=== PATIENT | male | born 1945 | race Caucasian/White ===

== ENCOUNTER 2016-07-13 06:59 | Inpatient (IN) | payer BC, OTHER ==
[2016-07-12] MEDS: SODIUM CHLORIDE 0.9% 1000ML 1,000 ML IV SCH (23:20)
[~2016-07-13] VITALS: Ht 172.7 cm; Wt 83.6 kg
[~2016-07-13 06:59] MED LIST: ASPEC325 PO; ENAL1TAB31 PO; HMLI SC; IBUP-1277 PO; INSDGI SC; LEVO1TAB PO; MISC1CAP65 PO; PRAV80TA2 PO
--- NOTE | 2016-07-13 07:07 | EMERGENCY ROOM VISIT NOTE ---
ED Visit Note First contact with patient: 07:06 I have seen and examined this patient with Michael Delarosa and generally agree with the treatment plan as discussed. Current/Historical Medications Scheduled Aspirin (Aspirin *), 325 MG PO QPM Enalapril Maleate (Vasotec), 1 TAB PO QPM Insulin Glargine (Lantus), 38 UNITS SC AMPM Insulin Lispro (Humalog), 22 UNITS SC TIDM Levothyroxine Sodium (Synthroid), 1 TAB PO QAM Misc Natural Products (Urinozinc), 1 CAP PO BID Pravastatin Sodium (Pravastatin Sodium), 1 TAB PO HS Scheduled PRN Ibuprofen (Advil), 400 MG PO BID PRN for Pain Allergies Coded Allergies: No Known Allergies (Verified , 07/13/16) Departure Information Referrals Lilian Ritchie M.D. (PCP) Patient Instructions My [facility]
--- NOTE | 2016-07-13 07:08 | EMERGENCY ROOM VISIT NOTE ---
History First contact with patient: 07:06 Chief Complaint: ILLNESS Stated Complaint: SINUS CONGESTION,VOMITING,BRONCHITIS,DEHYDRATION History of Present Illness The patient is a 70 year old male who presents to the Emergency Room via private vehicle accompanied by female with complaints of "sinus congestion, vomiting, bronchitis, dehydration". The patient states that he was placed on Augmentin this past Saturday for a sinus infection, and on Saturday developed vomiting. He also has nausea. He notes that recently his blood sugars have been very high, between 239 and 310. He notes his blood sugars are usually around 170. He also has an aphthous ulcer on his left lip, and is concerned about a dental infection. He notes that he is tired, and sick vomiting. He notes mild generalized abdominal pain since the vomiting began on Saturday, and has not had a bowel movement in 3 days. He feels that the Augmentin is providing some relief. There is associated chills. He denies any chest pain, shortness of breath, blood in the vomit, history of pancreatitis, urinary symptoms. He has miminal, generalized abdominal pain. Review of Systems A complete 10-point Review of Systems was discussed with the patient, with pertinent positives and negatives listed in the History of Present Illness. All remaining Review of Systems questions can be considered negative unless otherwise specified. Past Medical/Surgical History Medical Problems: (1) DKA (diabetic ketoacidosis) Social History Smoking Status: Former Smoker Housing Status: lives with family Current/Historical Medications Scheduled Amoxicillin & Pot Clavulanate (Augmentin 875-125 mg), 1 TAB PO BID Aspirin (Aspirin Ec), 81 MG PO DAILY Enalapril Maleate (Vasotec), 20 MG PO QPM Ergocalciferol (Vitamin D2), 1,000 UNITS PO DAILY Insulin Glargine (Lantus), 42 UNITS SC AMPM Insulin Lispro (Human) (Humalog), 25 UNITS SC TIDM Levothyroxine Sodium (Levothyroxine Sodium), 137 MCG PO DAILY Multivitamin (Multivitamin), 1 TAB PO DAILY Pravastatin Sodium (Pravastatin Sodium), 80 MG PO HS Scheduled PRN Ibuprofen (Advil), 400 MG PO BID PRN for Pain Allergies Coded Allergies: No Known Allergies (Verified , 07/13/16) Physical Exam Vital Signs Date Time Temp Pulse Resp B/P Pulse Ox O2 Delivery O2 Flow Rate FiO2 07/13/16 10:40 72 18 161/95 95 Room Air 07/13/16 10:18 72 07/13/16 08:27 83 18 123/75 96 Room Air 07/13/16 07:19 93 07/13/16 07:03 36.4 91 17 140/99 98 Room Air Physical Exam VITAL SIGNS - Vital signs and nursing notes were reviewed. Patient is afebrile , non-tachycardic, his respiratory well, has a stable blood pressure and is saturating well on room air 98%. GENERAL -70-year-old male appearing his stated age who is in no acute distress. Communicates well with provider and answers questions appropriately. SKIN - Without rashes. No petechial rashes. HEAD - NC/AT. EYES - PERRL with EOMI bilaterally. Sclera anicteric. Palpebral conjunctiva pink and moist with no injection noted. EARS - No deformities of external structures noted on gross examination bilaterally. No pain elicited with palpation of the tragus bilaterally. External auditory canals without discharge or otorrhea. Tympanic membranes pearly vicente without retraction or bulging. No fluid or purulent material visualized behind the TM. Handle of malleus, umbo, cone of light, pars tensa/ flaccid all easily visualized. NOSE - Midline and without cyanosis. No epistaxis or purulent drainage noted. Septum midline without deviation or septal hematoma noted. MOUTH/OROPHARYNX - Without perioral cyanosis. Buccal mucosa pink and moist and without leukoplakia. Tongue midline with equal elevation of palate bilaterally. No tonsillar hypertrophy, erythema, or exudates noted. Fair dentition noted. No signs of Hieu angina. NECK - Neck with FROM. Supple to palpation. No lymphadenopathy noted. No nuchal rigidity. LUNGS - Chest wall symmetric without accessory muscle use, intercostals retractions, or central cyanosis. Normal vesicular breath sounds CTA B/L. No wheezes, rales, or rhonchi appreciated. CARDIAC - RRR with S1/S2. No murmur, rubs, or gallops appreciated. ABDOMEN - Abdominal contour without pulsations or visible masses. BS normoactive all four quadrants. There is generalized, moderate abdominal tenderness to palpation. No palpable masses, hepatosplenomegaly, or ascites noted. EXTREMITIES - No clubbing or peripheral cyanosis. No pretibial edema present. +5 /5 strength noted in UE/LE bilaterally. NEUROLOGIC - Cranial nerves II through XII grossly intact. Sensory intact to light touch throughout. PSYCH - A&Ox3 and cooperates fully with examiner. Pt is very pleasant and interacts well with examiner. Medical Decision & Procedures ER Provider Diagnostic Interpretation: CHEST ONE VIEW PORTABLE HISTORY: Vomiting COMPARISON: None. FINDINGS: Poststernotomy changes. No focal lung consolidations. No evidence for pulmonary edema. No pleural effusions. No pneumothorax. IMPRESSION: No acute process. Electronically signed by: Mainor Cano M.D. 07/13/2016 8:03 AM Dictated Date/Time: 07/13/2016 7:57 AM ABDOMEN AND PELVIS CT WITH IV CONTRAST CT DOSE: 731.73 mGycm HISTORY: Emesis TECHNIQUE: Multiaxial CT images of the abdomen and pelvis were performed following the use of intravenous contrast. COMPARISON STUDY: None. FINDINGS: The lung bases are clear. No pneumoperitoneum. No pneumatosis. 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 Poststernotomy changes. Suspect mild thickening of the distal esophagus, stomach, and duodenum. There is also suggestion of mild thickening involving the cecum, ascending colon, and hepatic flexure of the colon. The liver, gallbladder, spleen, adrenal glands, and kidneys are unremarkable. No retroperitoneal lymphadenopathy. Subcutaneous contusions within the anterior abdominal wall bilaterally. This favors prior medication injection. Punctate calcification within the pancreatic head. There is also a 2.0 x 1.0 cm calcification at the body of the pancreas. Proximal to this there is dilatation the main pancreatic duct and multiple additional punctate calcifications within the pancreatic tail. The main pancreatic duct measures 11 mm in diameter. There is diffuse atrophy of the pancreatic tail. The main portal vein is patent. The bladder is unremarkable. There is mild enlargement of the prostate gland. Tiny fat-containing right inguinal hernia. No evidence for bowel obstruction. Normal appendix. Left circumaortic renal vein. IMPRESSION: 1. There is suggestion of mild thickening of the distal esophagus, stomach, duodenum. There may also be mild thickening of the proximal colon. However, these findings could be due to underdistention given the lack of oral contrast. Endoscopy can be further evaluation given the patient's history of emesis and to exclude an inflammatory process. 2. A 2.0 x 1.0 cm calcification at the body of the pancreas. This results in obstruction with marked dilatation of the pancreatic duct at the tail with associated atrophy of the pancreatic tail. There are additional scattered punctate calcifications within the pancreas consistent with chronic pancreatitis. This calcification could be within the pancreatic parenchyma or within the duct. 3. Subcutaneous contusions within the anterior abdominal wall bilaterally. This favors prior medication injection. 4. Additional findings as described above. Electronically signed by: Mainor Cano M.D. 07/13/2016 9:02 AM Dictated Date/Time: 07/13/2016 8:48 AM Laboratory Results 07/13/16 07:30 Red Blood Count 5.67, Mean Corpuscular Volume 82.2, Mean Corpuscular Hemoglobin 29.5, Mean Corpuscular Hemoglobin Concent 35.8, Mean Platelet Volume 11.2, Neutrophils (%) (Auto) 76.9, Lymphocytes (%) (Auto) 12.0, Monocytes (%) (Auto) 8.4, Eosinophils (%) (Auto) 2.2, Basophils (%) (Auto) 0.1, Neutrophils # (Auto) 10.69, Lymphocytes # (Auto) 1.66, Monocytes # (Auto) 1.16, Eosinophils # (Auto) 0.31, Basophils # (Auto) 0.02 Test 07/13/16 07:30 07/13/16 09:10 07/13/16 09:11 07/13/16 09:30 White Blood Count 13.89 K/uL (4.8-10.8) Red Blood Count 5.67 M/uL (4.7-6.1) Hemoglobin 16.7 g/dL (14.0-18.0) Hematocrit 46.6 % (42-52) Mean Corpuscular Volume 82.2 fL (80-100) Mean Corpuscular Hemoglobin 29.5 pg (25-34) Mean Corpuscular Hemoglobin Concent 35.8 g/dl (32-36) Platelet Count 185 K/uL (130-400) Mean Platelet Volume 11.2 fL (7.4-10.4) Neutrophils (%) (Auto) 76.9 % Lymphocytes (%) (Auto) 12.0 % Monocytes (%) (Auto) 8.4 % Eosinophils (%) (Auto) 2.2 % Basophils (%) (Auto) 0.1 % Neutrophils # (Auto) 10.69 K/uL (1.4-6.5) Lymphocytes # (Auto) 1.66 K/uL (1.2-3.4) Monocytes # (Auto) 1.16 K/uL (0.11-0.59) Eosinophils # (Auto) 0.31 K/uL (0-0.5) Basophils # (Auto) 0.02 K/uL (0-0.2) RDW Standard Deviation 39.0 fL (36.4-46.3) RDW Coefficient of Variation 13.0 % (11.5-14.5) Immature Granulocyte % (Auto) 0.4 % Immature Granulocyte # (Auto) 0.05 K/uL (0.00-0.02) Estimated Average Glucose 246 mg/dl Hemoglobin A1c 10.2 % (4.5-5.6) Total Bilirubin 0.8 mg/dl (0.2-1) Aspartate Amino Transf (AST/SGOT) U/L (15-37) Alanine Aminotransferase (ALT/SGPT) 35 U/L (12-78) Alkaline Phosphatase 72 U/L (45-117) Troponin I < 0.015 ng/ml (0-0.045) Total Protein 7.1 gm/dl (6.4-8.2) Albumin 3.5 gm/dl (3.4-5.0) Globulin 3.6 gm/dl (2.5-4.0) Albumin/Globulin Ratio 1.0 (0.9-2) Amylase Level 35 U/L (25-115) Lipase 498 U/L (73-393) Beta-Hydroxybutyric Acid 15.86 mg/dL (0.2-2.81) Urine Color YELLOW Urine Appearance CLEAR (CLEAR) Urine pH 5.0 (4.5-7.5) Urine Specific [place] > 1.045 (1.000-1.030) Urine Protein NEG (NEG) Urine Glucose (UA) 3+ (NEG) Urine Ketones 3+ (NEG) Urine Occult Blood NEG (NEG) Urine Nitrite NEG (NEG) Urine Bilirubin NEG (NEG) Urine Urobilinogen NEG (NEG) Urine Leukocyte Esterase NEG (NEG) Bedside Troponin I 0.000 ng/ml (0-0.045) Magnesium Level 2.0 mg/dl (1.8-2.4) Medications Administered Medications (Trade) Dose Ordered Sig/[place] Route Start Time Stop Time Status Last Admin Dose Admin Sodium Chloride (Nss 1000ml) 1,000 ml @ 999 mls/hr Q1H1M IV 07/13/16 07:30 07/13/16 13:20 DC 07/13/16 07:36 999 MLS/HR Ondansetron HCl 4 mg 4 mg NOW STAT IV 07/13/16 07:18 07/13/16 07:21 DC 07/13/16 07:36 4 MG Sodium Chloride (Nss 1000ml) 1,000 ml @ 200 mls/hr Q5H STAT IV 07/13/16 09:12 07/13/16 13:20 DC 07/13/16 09:21 200 MLS/HR Ondansetron HCl 4 mg 4 mg NOW STAT IV 07/13/16 10:42 07/13/16 10:43 DC 07/13/16 10:56 4 MG Sodium Chloride (Nss 1000ml) 1,000 ml @ 100 mls/hr Q10H IV 07/13/16 11:39 08/12/16 11:38 07/13/16 13:47 100 MLS/HR Medical Decision Patient was seen and evaluated as above. After obtaining a thorough history and physical examination the above workup was initiated. I was concerned for DKA, pancreatitis, [place], among others. Chest x-ray reveals no acute process is noted above. EKG reveals sinus rhythm, rate of 77 bpm with without acute ectopy or evidence of ischemic change at this time, however when compared to previous EKG, a right bundle branch block is now present. And PVCs are now present. Patient's lab work reveals an elevated leukocytosis of 13.9, normal coagulation studies, a low sodium, elevated anion gap of 12, elevated BUN 27, random glucose of 313, calcium at 8.4, lipase at 4.98 and beta hydroxybutyric acid at 15.86. Urine reveals elevated specific gravity, and 3+ ketones. There was concern for DKA. No fruity breath smell. Chest x-ray unremarkable. Abdomen pelvis CT as described above. There is concern for chronic pancreatitis , among other findings. Case was discussed with my attending and the decision was made to the patient should be admitted for further evaluation and management. While here in the emergency department he was hydrated with 1 L of normal saline bolus, and then maintained 200 mL's per hour. He was given Zofran 2 for his nausea. He did not want any for pain. I do not suspect any acute cardiac cause of this pain. Troponin was negative. Patient was happy with today's plan of care, and will be admitted for further evaluation and management. His case was discussed with the hospitalist. Please refer to further documentation regarding the patient's stay. In the evaluation and treatment of this patient following differential diagnoses were entertained: DKA, pancreatitis, [place], among others. Impression Primary Impression: DKA (diabetic ketoacidosis) Additional Impression: Pancreatitis Departure Information Dispostion Admitted as an inpatient Condition FAIR Referrals Lilian Ritchie M.D. (PCP) Patient Instructions My [facility] Problem Qualifiers Primary Impression: DKA (diabetic ketoacidosis)
[2016-07-13] MEDS ORDERED: ONDANSETRON INJ 2 MG/ML 2 ML VIAL IV STA ×2 (07:18→10:42)
[2016-07-13] MEDS ORDERED: SODIUM CHLORIDE 0.9% 1000ML 1,000 ML IV SCH (07:30)
[2016-07-13 07:45] LABS: BASO % 0.1 %; BASO ABS # 0.02 K/uL (0-0.2); COMPLETE YES; EOS % 2.2 %; HEMATOCRIT 46.6 % (42-52); IG% 0.4 %; LYMPH ABS # 1.66 K/uL (1.2-3.4); MEAN CELL VOLUME 82.2 fL (80-100); MEAN CORPUSCULAR HEMOGLOBIN 29.5 pg (25-34); MEAN CORPUSCULAR HGB CONC 35.8 g/dl (32-36); MEAN PLATELET VOLUME 11.2 fL (7.4-10.4); MONO % 8.4 %; NEUT % 76.9 %; PLATELET COUNT 185 K/uL (130-400); RED BLOOD COUNT 5.67 M/uL (4.7-6.1); WHITE BLOOD COUNT 13.89 K/uL (4.8-10.8)
[2016-07-13] MEDS ORDERED: OPTIRAY 320 IV PRN (07:45)
[2016-07-13] MEDS ORDERED: ASPI81TA28 PO (07:58)
[2016-07-13] MEDS ORDERED: ERGO1TAB12 PO (07:58)
[2016-07-13] MEDS ORDERED: AMOX875T PO (07:58)
[2016-07-13] MEDS ORDERED: INSDGI SC (07:58)
[2016-07-13] MEDS ORDERED: SYN137 PO (07:58)
[2016-07-13] MEDS ORDERED: MULT-506 PO (07:58)
[2016-07-13] MEDS ORDERED: INSU100I SC (07:58)
--- NOTE | 2016-07-13 08:04 | DIAGNOSTIC IMAGING REPORT ---
CHEST ONE VIEW PORTABLE HISTORY: Vomiting COMPARISON: None. FINDINGS: Poststernotomy changes. No focal lung consolidations. No evidence for pulmonary edema. No pleural effusions. No pneumothorax. IMPRESSION: No acute process. Electronically signed by: Mainor Cano M.D. 07/13/2016 8:03 AM Dictated Date/Time: 07/13/2016 7:57 AM
[2016-07-13 08:10] LABS: ALKALINE PHOSPHATASE 72 U/L (45-117); ALT/SGPT 35 U/L (12-78); AMYLASE 35 U/L (25-115); BETA-HYDROXYBUTYRATE 15.86 mg/dL (0.2-2.81); BLOOD UREA NITROGEN 27 mg/dl (7-18); BUN/CREATININE RATIO 26.8 (10-20); CALCIUM 8.4 mg/dl (8.5-10.1); CARBON DIOXIDE 21 mmol/L (21-32); CHLORIDE 100 mmol/L (98-107); GLUCOSE 313 mg/dl (70-99); SODIUM 133 mmol/L (136-145)
--- NOTE | 2016-07-13 09:04 | DIAGNOSTIC IMAGING REPORT ---
ABDOMEN AND PELVIS CT WITH IV CONTRAST CT DOSE: 731.73 mGycm HISTORY: Emesis TECHNIQUE: Multiaxial CT images of the abdomen and pelvis were performed following the use of intravenous contrast. COMPARISON STUDY: None. FINDINGS: The lung bases are clear. No pneumoperitoneum. No pneumatosis. 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 Poststernotomy changes. Suspect mild thickening of the distal esophagus, stomach, and duodenum. There is also suggestion of mild thickening involving the cecum, ascending colon, and hepatic flexure of the colon. The liver, gallbladder, spleen, adrenal glands, and kidneys are unremarkable. No retroperitoneal lymphadenopathy. Subcutaneous contusions within the anterior abdominal wall bilaterally. This favors prior medication injection. Punctate calcification within the pancreatic head. There is also a 2.0 x 1.0 cm calcification at the body of the pancreas. Proximal to this there is dilatation the main pancreatic duct and multiple additional punctate calcifications within the pancreatic tail. The main pancreatic duct measures 11 mm in diameter. There is diffuse atrophy of the pancreatic tail. The main portal vein is patent. The bladder is unremarkable. There is mild enlargement of the prostate gland. Tiny fat-containing right inguinal hernia. No evidence for bowel obstruction. Normal appendix. Left circumaortic renal vein. IMPRESSION: 1. There is suggestion of mild thickening of the distal esophagus, stomach, duodenum. There may also be mild thickening of the proximal colon. However, these findings could be due to underdistention given the lack of oral contrast. Endoscopy can be further evaluation given the patient's history of emesis and to exclude an inflammatory process. 2. A 2.0 x 1.0 cm calcification at the body of the pancreas. This results in obstruction with marked dilatation of the pancreatic duct at the tail with associated atrophy of the pancreatic tail. There are additional scattered punctate calcifications within the pancreas consistent with chronic pancreatitis. This calcification could be within the pancreatic parenchyma or within the duct. 3. Subcutaneous contusions within the anterior abdominal wall bilaterally. This favors prior medication injection. 4. Additional findings as described above. Electronically signed by: Mainor Cano M.D. 07/13/2016 9:02 AM Dictated Date/Time: 07/13/2016 8:48 AM
[2016-07-13] MEDS ORDERED: SODIUM CHLORIDE 0.9% 1000ML 1,000 ML IV STA (09:12)
[2016-07-13 09:25] LABS: URINE APPEARANCE CLEAR (CLEAR); URINE BILIRUBIN NEG (NEG); URINE COLOR YELLOW; URINE NITRITE NEG (NEG); URINE SPECIFIC GRAVITY > 1.045 (1.000-1.030); UROBILINOGEN NEG (NEG); ZZUR CULT IF INDIC CLEAN CATCH NO
[2016-07-13 09:31] LABS: MANUAL MICROSCOPIC REQUIRED? NO; REVIEW REQ? NO
[2016-07-13 09:53] LABS: POTASSIUM 4.3 mmol/L (3.5-5.1)
[2016-07-13] MEDS ORDERED: DEXTROSE 50% 50 ML SYR IV PRN (11:45)
[2016-07-13] MEDS ORDERED: MAGNESIUM HYDROXIDE SUSP 30 ML UDC PO PRN (11:45)
[2016-07-13] MEDS ORDERED: POLYETHYLENE (MIRALAX) 17 GM PACK PO PRN (11:45)
[2016-07-13] MEDS ORDERED: GLUCOSE 40% GEL 15 GM TUBE PO PRN (11:45)
[2016-07-13] MEDS ORDERED: GLUCOSE 10 TABS/TUBE PO PRN (11:45)
[2016-07-13] MEDS ORDERED: ALUMINUM/MAGNESIUM/SIMETH (MAALOX MAX) 30 ML UDC PO PRN (11:45)
[2016-07-13] MEDS ORDERED: HydrALAZINE HCL 20 MG/ML VIAL IV. PRN (11:45)
[2016-07-13] MEDS ORDERED: GLUCAGON FOR INJ 1 MG VIAL SQ PRN (11:45)
[2016-07-13] MEDS ORDERED: ONDANSETRON INJ 2 MG/ML 2 ML VIAL IV PRN (11:45)
[2016-07-13] MEDS ORDERED: PHARMACY GLYCEMIC MGMT CONSULT PRN (12:01)
[2016-07-13 12:34] LABS: ESTIMATED AVERAGE GLUCOSE 246 mg/dl; HA1C FLAG Normal (Normal)
[2016-07-13 12:48] VITALS: O2SAT 96
--- NOTE | 2016-07-13 12:54 | History and Physical ---
History & Physical Date & Time of Service: Jul 13, 2016 at 12:09 Chief Complaint: Sinus Congestion,Vomiting,Bronchitis,Dehydration Primary Care Physician: Lilian Ritchie M.D. History of Present Illness Source: patient, spouse ( at bedside), clinic records, hospital records This is a 70 y/o male with a history of DM II, recurrent sinusitis, HTN, HLD, hypothyroidism who presented to the ED on 07/13 with nausea, vomiting, and elevated blood sugars. The patient states that he developed an acute episode of his recurrent sinusitis which started about 2 weeks ago, complaining of sinus congestion, facial pressure, lightheadedness and headaches. His blood sugars also became more elevated than normal around the same time. He states his sugars typically run around 170, but in the last 2 weeks have been in the mid 200s to low 300s. He went to his PCP who prescribed him Augmentin, which he started on 07/09. The Augmentin seemed to temporarily help his symptoms for a few hours following each dose. 2 days after starting the antibiotic, the patient developed nausea and vomiting. The patient states he vomited 7 times that day alone and was not able to keep food or medications down. He reports feeling chills and sweats following vomiting and denies any blood in the vomitus. He later developed an aching abdominal pain after several episodes of vomiting. The patient also complains of weakness, fatigue, generalized myalgias , wheezing and dyspnea on exertion. He also reports a mild cough with some thick clear/white mucus. The patient denies fevers, chest pain, palpitations, claudication, shortness of breath at rest, dysuria, hematuria, urinary retention , paralysis, motor weakness, numbness and tingling. Past Medical/Surgical History Diabetes mellitus type 2 Recurrent sinusitis HTN HLD Hypothyroidism Family History Bladder cancer Diabetes mellitus Hyperlipidemia Hypertension Myocardial infarction Social History Smoking Status: Former Smoker Smokeless Tobacco Use: No Alcohol Use: none Drug Use: none Marital Status: Housing status: lives with significant other Occupational Status: retired Multi-Drug Resistant Organisms History of MDRO: No Allergies Coded Allergies: No Known Allergies (Verified , 07/13/16) Home Medications Scheduled Amoxicillin & Pot Clavulanate (Augmentin 875-125 mg), 1 TAB PO BID Aspirin (Aspirin Ec), 81 MG PO DAILY Enalapril Maleate (Vasotec), 20 MG PO QPM Ergocalciferol (Vitamin D2), 1,000 UNITS PO DAILY Insulin Glargine (Lantus), 42 UNITS SC AMPM Insulin Lispro (Human) (Humalog), 25 UNITS SC TIDM Levothyroxine Sodium (Levothyroxine Sodium), 137 MCG PO DAILY Multivitamin (Multivitamin), 1 TAB PO DAILY Pravastatin Sodium (Pravastatin Sodium), 80 MG PO HS Scheduled PRN Ibuprofen (Advil), 400 MG PO BID PRN for Pain Review of Systems Constitutional: + chills (after vomiting), + fatigue, + problem reported ( lightheaded), + sweats (after vomiting), + weakness, No fever Eyes: + worsening of vision (blurry vision), No diplopia, No eye pain ENT: + nasal symptoms (congestion), + problem reported (sinus congestion, sinus pressure, sinus headaches), No hearing loss, No sore throat, No trouble swallowing Respiratory: + cough (mild), + dyspnea on exertion, + sputum (thick clear/ white mucus), + wheezing, No dyspnea at rest Cardiovascular: No chest pain, No claudication, No palpitations Abdomen: + constipation, + nausea, + pain (diffuse, sore), + vomiting Musculoskeletal: + muscle pain (generalized myalgias), No calf pain, No swelling Genitourinary - Male: + problem reported (dark, concentrated urine, decreased frequency), + urinary retention, No dysuria, No hematuria Neurologic: No numbness/tingling, No paralysis, No weakness Integumentary: No color change, No itch, No rash Physical Exam Vital Signs Date Time Temp Pulse Resp B/P Pulse Ox O2 Delivery O2 Flow Rate FiO2 07/13/16 10:40 72 18 161/95 95 Room Air 07/13/16 10:18 72 07/13/16 08:27 83 18 123/75 96 Room Air 07/13/16 07:19 93 07/13/16 07:03 36.4 91 17 140/99 98 Room Air General Appearance: WD/WN, no apparent distress Head: normocephalic, atraumatic Eyes: normal inspection, PERRL, EOMI ENT: normal ENT inspection, hearing grossly normal, pharynx normal Neck: supple, no JVD, trachea midline Respiratory/Chest: lungs clear, normal breath sounds, no respiratory distress, + decreased breath sounds Cardiovascular: regular rate, rhythm, no gallop, no murmur Abdomen/GI: normal bowel sounds, soft, + tenderness (mild diffuse tenderness) Extremities/Musculoskelatal: normal inspection, no calf tenderness, no pedal edema Neurologic/Psych: alert, normal mood/affect, oriented x 3 Skin: normal color, warm/dry, no rash Diagnostics Laboratory Results Results Past 24 Hours Test 07/13/16 07:30 07/13/16 09:10 07/13/16 09:11 07/13/16 09:30 Range/Units White Blood Count 13.89 4.8-10.8 K/uL Red Blood Count 5.67 4.7-6.1 M/uL Hemoglobin 16.7 14.0-18.0 g/dL Hematocrit 46.6 42-52 % Mean Corpuscular Volume 82.2 80-100 fL Mean Corpuscular Hemoglobin 29.5 25-34 pg Mean Corpuscular Hemoglobin Concent 35.8 32-36 g/dl Platelet Count 185 130-400 K/uL Mean Platelet Volume 11.2 7.4-10.4 fL Neutrophils (%) (Auto) 76.9 % Lymphocytes (%) (Auto) 12.0 % Monocytes (%) (Auto) 8.4 % Eosinophils (%) (Auto) 2.2 % Basophils (%) (Auto) 0.1 % Neutrophils # (Auto) 10.69 1.4-6.5 K/uL Lymphocytes # (Auto) 1.66 1.2-3.4 K/uL Monocytes # (Auto) 1.16 0.11-0.59 K/uL Eosinophils # (Auto) 0.31 0-0.5 K/uL Basophils # (Auto) 0.02 0-0.2 K/uL RDW Standard Deviation 39.0 36.4-46.3 fL RDW Coefficient of Variation 13.0 11.5-14.5 % Immature Granulocyte % (Auto) 0.4 % Immature Granulocyte # (Auto) 0.05 0.00-0.02 K/uL Sodium Level 133 136-145 mmol/L Potassium Level 4.3 3.5-5.1 mmol/L Chloride Level 100 98-107 mmol/L Carbon Dioxide Level 21 21-32 mmol/L Anion Gap 12.0 3-11 mmol/L Blood Urea Nitrogen 27 7-18 mg/dl Creatinine 1.00 0.60-1.40 mg/dl Est Creatinine Clear Calc Drug Dose 73.3 ml/min Estimated GFR () 88.6 Estimated GFR (Non- 76.5 BUN/Creatinine Ratio 26.8 10-20 Random Glucose 313 70-99 mg/dl Calcium Level 8.4 8.5-10.1 mg/dl Magnesium Level 2.0 1.8-2.4 mg/dl Total Bilirubin 0.8 0.2-1 mg/dl Aspartate Amino Transf (AST/SGOT) 15-37 U/L Alanine Aminotransferase (ALT/SGPT) 35 12-78 U/L Alkaline Phosphatase 72 45-117 U/L Troponin I < 0.015 0-0.045 ng/ml Total Protein 7.1 6.4-8.2 gm/dl Albumin 3.5 3.4-5.0 gm/dl Globulin 3.6 2.5-4.0 gm/dl Albumin/Globulin Ratio 1.0 0.9-2 Amylase Level 35 25-115 U/L Lipase 498 73-393 U/L Beta-Hydroxybutyric Acid 15.86 0.2-2.81 mg/dL Urine Color YELLOW Urine Appearance CLEAR CLEAR Urine pH 5.0 4.5-7.5 Urine Specific [place] > 1.045 1.000-1.030 Urine Protein NEG NEG Urine Glucose (UA) 3+ NEG Urine Ketones 3+ NEG Urine Occult Blood NEG NEG Urine Nitrite NEG NEG Urine Bilirubin NEG NEG Urine Urobilinogen NEG NEG Urine Leukocyte Esterase NEG NEG Bedside Troponin I 0.000 0-0.045 ng/ml Microbiology Results 07/13/16 Blood Culture, Emerson Batch Pending 07/13/16 Blood Culture, Emerson Batch Pending Diagnostic Radiology Reviewed the following studies and agree with interpretation as follows: Patient Name: MICHAEL VEGA Unit Number: [id number] Dictated: 07/13/16756 Transcribed: 07/13/16756 TIER[facility] Printed Date/Time: [~ rep prt dt]/[~ rep prt tm] [~ rep ct labl] - [~ rep ct ivnm] [facility] [place] [address] Dictated: 02/24/17 0757 Transcribed: 07/13/16756 PAJ Printed Date/Time: [~ rep prt dt]/[~ rep prt tm] [~ rep ct labl] - [~ rep ct ivnm] Patient: MICHAEL VEGA Address1: [address] [place] [address] Rec: [id number] Address2: Acct ID: [id number] [facility] Zip: [place] [address] Date: 1945 Sex: M Room/Bed: Ref Phy: Lilian Ritchie M.D. SC: JEROMY Att Phy: Report #: [id number] Tiny Phy: Lilian Ritchie M.D. Test: CXR1P Admit Phy: Intermodal Dispatcher: [facility] Interpreting Phy: Mainor Cano MD Diagnosis: SINUS CONGESTION,VOMITING, BRONCHITIS,DEHYDRATION Ordering Phy: Michael Garcia PA-C Service Date: 07/13/16 Admit Date: 07/13/16 MNE: PWRSCRIBE CONF: DICTATED BY: Mainor Cano M.D.]] CC: Michael Garcia PA-C Finnerty, Kevin M., MD Singh, Madhavi, M.D. Endcc: [~ rep ct add3]] CHEST ONE VIEW PORTABLE HISTORY: Vomiting COMPARISON: None. FINDINGS: Poststernotomy changes. No focal lung consolidations. No evidence for pulmonary edema. No pleural effusions. No pneumothorax. IMPRESSION: No acute process. Electronically signed by: Mainor Cano M.D. 07/13/2016 8:03 AM Dictated Date/Time: 07/13/2016 7:57 AM The status of this report is Signed. Draft = Not yet reviewed or approved by Radiologist. Signed = Reviewed and approved by Radiologist. <AttendingPhy></AttendingPhy> <FamilyPhy>Lilian Ritchie M.D.</FamilyPhy> < PrimaryPhy>Lilian Ritchie M.D.</PrimaryPhy> <UnitNumber>[id number]</UnitNumber > <VisitNumber>[id number]</VisitNumber> <PatientName>MICHAEL VEGA</ PatientName> <DateOfBirth>1945</DateOfBirth> <Location>JEROMY</Location> < ServiceDate>07/13/16</ServiceDate> <MNE>ESINDI</MNE> <OrderingPhy>Michael Garcia PA-C</OrderingPhy> <OrderingPhyMNE>f rep ord dr matthews</OrderingPhyMNE> < DictatingPhyMNE>f rep dict dr matthews</DictatingPhyMNE> <CCListMNE>f rep ct mne</ CCListMNE> <AdmittingPhyMNE>f pt admit dr matthews</AdmittingPhyMNE> <AttendingPhyMNE >f pt attend dr matthews</AttendingPhyMNE> <ConsultingPhyMNE>f pt consult dr matthews</ConsultingPhyMNE> <FamilyPhyMNE>f pt fam dr matthews</FamilyPhyMNE> <OtherPhyMNE>f pt other dr matthews</OtherPhyMNE> < PrimaryPhyMNE>f pt prim care dr matthews</PrimaryPhyMNE> <ReferringPhyMNE>f pt referring dr matthews</ReferringPhyMNE> Patient Name: MICHAEL VEGA Unit Number: [id number] Dictated: 07/13/16847 Transcribed: 07/13/16847 [facility] Printed Date/Time: [~ rep prt dt]/[~ rep prt tm] [~ rep ct labl] - [~ rep ct ivnm] [facility] [place] [address] Dictated: 07/13/16847 Transcribed: 07/13/16847 [facility] Printed Date/Time: [~ rep prt dt]/[~ rep prt tm] [~ rep ct labl] - [~ rep ct ivnm] Patient: MICHAEL VEGA Address1: [address] [place] [address] Rec: [id number] Address2: Acct ID: [id number] [facility] Zip: [place] [address] Date: 1945 Sex: M Room/Bed: Ref Phy: Lilian Ritchie M.D. SC: JEROMY Att Phy: Report #: [id number] Tiny Phy: Lilian Ritchie M.D. Test: APIV Admit Phy: Intermodal Dispatcher: [facility] Interpreting Phy: Mainor Cano MD Diagnosis: SINUS CONGESTION,VOMITING, BRONCHITIS,DEHYDRATION Ordering Phy: Michael Garcia PA-C Service Date: 07/13/16 Admit Date: 07/13/16 MNE: PWRSCRIBE CONF: DICTATED BY: Mainor Cano M.D.]] CC: Michael Garcia PA-C Finnerty, Kevin M., MD Singh, Madhavi, M.D. Endcc: [~ rep ct add3]] ABDOMEN AND PELVIS CT WITH IV CONTRAST CT DOSE: 731.73 mGycm HISTORY: Emesis TECHNIQUE: Multiaxial CT images of the abdomen and pelvis were performed following the use of intravenous contrast. COMPARISON STUDY: None. FINDINGS: The lung bases are clear. No pneumoperitoneum. No pneumatosis. 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 Poststernotomy changes. Suspect mild thickening of the distal esophagus, stomach, and duodenum. There is also suggestion of mild thickening involving the cecum, ascending colon, and hepatic flexure of the colon. The liver, gallbladder, spleen, adrenal glands, and kidneys are unremarkable. No retroperitoneal lymphadenopathy. Subcutaneous contusions within the anterior abdominal wall bilaterally. This favors prior medication injection. Punctate calcification within the pancreatic head. There is also a 2.0 x 1.0 cm calcification at the body of the pancreas. Proximal to this there is dilatation the main pancreatic duct and multiple additional punctate calcifications within the pancreatic tail. The main pancreatic duct measures 11 mm in diameter. There is diffuse atrophy of the pancreatic tail. The main portal vein is patent. The bladder is unremarkable. There is mild enlargement of the prostate gland. Tiny fat-containing right inguinal hernia. No evidence for bowel obstruction. Normal appendix. Left circumaortic renal vein. IMPRESSION: 1. There is suggestion of mild thickening of the distal esophagus, stomach, duodenum. There may also be mild thickening of the proximal colon. However, these findings could be due to underdistention given the lack of oral contrast. Endoscopy can be further evaluation given the patient's history of emesis and to exclude an inflammatory process. 2. A 2.0 x 1.0 cm calcification at the body of the pancreas. This results in obstruction with marked dilatation of the pancreatic duct at the tail with associated atrophy of the pancreatic tail. There are additional scattered punctate calcifications within the pancreas consistent with chronic pancreatitis. This calcification could be within the pancreatic parenchyma or within the duct. 3. Subcutaneous contusions within the anterior abdominal wall bilaterally. This favors prior medication injection. 4. Additional findings as described above. Electronically signed by: Mainor Cano M.D. 07/13/2016 9:02 AM Dictated Date/Time: 07/13/2016 8:48 AM The status of this report is Signed. Draft = Not yet reviewed or approved by Radiologist. Signed = Reviewed and approved by Radiologist. <AttendingPhy></AttendingPhy> <FamilyPhy>Lilian Ritchie M.D.</FamilyPhy> < PrimaryPhy>Lilian Ritchie M.D.</PrimaryPhy> <UnitNumber>[id number]</UnitNumber > <VisitNumber>[id number]</VisitNumber> <PatientName>MICHAEL VEGA</ PatientName> <DateOfBirth>1945</DateOfBirth> <Location>C.EDB</Location> < ServiceDate>07/13/16</ServiceDate> <MNE>ESINDI</MNE> <OrderingPhy>Michael Garcia PA-C</OrderingPhy> <OrderingPhyMNE>f rep ord dr matthews</OrderingPhyMNE> < DictatingPhyMNE>f rep dict dr matthews</DictatingPhyMNE> <CCListMNE>f rep ct cassie</ CCListMNE> <AdmittingPhyMNE>f pt admit dr matthews</AdmittingPhyMNE> <AttendingPhyMNE >f pt attend dr matthews</AttendingPhyMNE> <ConsultingPhyMNE>f pt consult dr matthews</ConsultingPhyMNE> <FamilyPhyMNE>f pt fam dr matthews</FamilyPhyMNE> <OtherPhyMNE>f pt other dr matthews</OtherPhyMNE> < PrimaryPhyMNE>f pt prim care dr matthews</PrimaryPhyMNE> <ReferringPhyMNE>f pt referring dr matthews</ReferringPhyMNE> EKG Reviewed EKG and agree with interpretation as follows: 77 bpm, sinus rhythm with PVCs, RBBB, T wave inversions leads V1 and V2 Impression Assessment and Plan 70 y/o male with a history of DM II, recurrent sinusitis, HTN, HLD, hypothyroidism who presented to the ED on 07/13 with nausea, vomiting, and elevated blood sugars. Acute episode of sinusitis started 2 weeks ago and blood sugars went up to mid 200s to low 300s around the same time. Pt began treatment with Augmentin on 07/09. 2 days later developed N/V, generalized myalgias, weakness and fatigue. CXR no acute disease. Abd/pelvis CT shows chronic pancreatitis and pancreatic calcification causing obstruction and dilation of pancreatic duct. WBC elevated at 13.89. Lipase elevated at 498. Beta hydroxybutyric acid elevated at 15.86. 3+ ketones in urine. AVSS. Received 1L NSS bolus, then running at rate of 200 cc/hr. Diabetic ketoacidosis, h/o diabetes mellitus type 2--Last HgbA1c on record was in 2008. Pt typically has BSGs in 170s. Takes Lantus 42 units SC BID and Humalog ~22 units SC BID-QID -Admit to telemetry -NSS at 200 cc/hr -Repeat PRP at 1300, anion gap this am was 12 -Check blood cultures x 2 -NPO. Hold home meds due to persistent nausea/vomiting -Increase Lantus to 45 units SC BID -Insulin sliding scale -Check BSGs q6h while NPO -Pharmacy glycemic management consult -Recheck HgbA1c -Zofran 4 mg IV q6h prn nausea Acute sinusitis -Levaquin 750 mg IV qd as cannot take PO meds at this time Chronic pancreatitis--pt denies any history of pancreatitis, but calcifications on CT indicate chronic pancreatitis -Lipase 498 on arrival, this may be baseline due to chronic disease -Recheck lipase in am -NPO, IVF as above HTN--stable -Hold enalapril while NPO due to vomiting -Cover with hydralazine 10 mg IV q6h prn SBP >180 HLD -Hold pravastatin while NPO due to vomting Hypothyroidism -Hold Synthroid PO while NPO due to vomiting -Synthroid 68.5 mcg IV qd DVT prophylaxis -Enoxaparin 40 mg SC q24h -GENEVIEVE duvall and SCDs Code Status -Level V, DO NOT RESUSCITATE I agree with PA assessment and plan and have seen and examined the pt myself VSS Labs reviewed DKA, with mildly elev hyperglycemia, AG 12, cont lantus and IVF at this time Cont antibx as well Will recheck BMP this afternoon Level of Care Telemetry Resuscitation Status DO NOT RESUSCITATE VTE Prophylaxis VTE Risk Assessment Done? Y/N: Yes Risk Level: Moderate Given or contraindicated: Enoxaparin (Lovenox)SQ, T.E.D. Stockings, SCD's
[2016-07-13] MEDS ORDERED: NURSING VERBAL MED ORDER ONE ×3 (13:45)
[2016-07-13] MEDS: SODIUM CHLORIDE 0.9% 1000ML 1,000 ML IV SCH (13:47)
--- NOTE | 2016-07-13 13:52 | Pharmacy Progress Note ---
Glycemic Control Intl Consult Date of Service Jul 13, 2016. Scope Glycemic Pharmacist consulted by Dorothy Pruitt PA-C on 07/13/16 for glycemic control and to write orders per [facility] inpatient glycemic control protocol Objective Weight (Kilograms): 83.300 Accuchecks BSG (last 24hrs): Test 07/13/16 07:30 07/13/16 13:00 Random Glucose 313 mg/dl (70-99) Laboratory Data (last 24hrs) Test 07/13/16 07:30 07/13/16 09:30 07/13/16 13:00 Anion Gap 12.0 mmol/L BUN/Creatinine Ratio 26.8 Blood Urea Nitrogen 27 mg/dl Creatinine 1.00 mg/dl Hemoglobin A1c 10.2 % Potassium Level mmol/L 4.3 mmol/L Sodium Level 133 mmol/L White Blood Count 13.89 K/uL Red Blood Count 5.67 M/uL Hemoglobin 16.7 g/dL Hematocrit 46.6 % Mean Corpuscular Volume 82.2 fL Mean Corpuscular Hemoglobin 29.5 pg Mean Corpuscular Hemoglobin Concent 35.8 g/dl Platelet Count 185 K/uL Mean Platelet Volume 11.2 fL Neutrophils (%) (Auto) 76.9 % Lymphocytes (%) (Auto) 12.0 % Monocytes (%) (Auto) 8.4 % Eosinophils (%) (Auto) 2.2 % Basophils (%) (Auto) 0.1 % Neutrophils # (Auto) 10.69 K/uL Lymphocytes # (Auto) 1.66 K/uL Monocytes # (Auto) 1.16 K/uL Eosinophils # (Auto) 0.31 K/uL Basophils # (Auto) 0.02 K/uL HbA1c Test 07/13/16 07:30 Hemoglobin A1c 10.2 % (4.5-5.6) H Recent Pertinent Medications Outpatient Anti-diabetic Regimen: * Lantus 42 u BID * Humalog 25 u TIDM Risk Factors for Insulin Resistance: * IVF: NS * Diet: NPO Assessment & Plan ASSESSMENT: * 70 yo M admitted with sinus infection/nausea/vomiting * A1c from this admission indicative of poor glycemic control as an outpatient * Our records show a home regimen providing ~159 units of insulin total per day * Nurse spoke with patient, last insulin dose SAND CONDITIONER was last night (42 units of Lantus), nothing this AM * BSG in the ER 303 mg/dL, I have a STAT BSG pending * Patient is NPO currently, unsure what plan is for advancing diet * Initiate basal/bolus regimen based on total daily outpatient dose and reassess in the AM * ADA & AACE recommend a goal blood sugar range 140-180 mg/dl for the majority of critically ill & non-critically ill patients. However, more stringent targets may be selected in individual cases. PLAN FOR INPATIENT GLYCEMIC CONTROL: * Basal insulin with LANTUS * 21 units if BSG </= 140 mg/dL * 42 units if BSG >141 mg/dL * Correctional Insulin with NOVOLOG per scale ACHS or Q6hrs while NPO + 0200 check * Goal Range: Low 110 mg/dL - High 150 mg/dL * Correction Factor: 15 mg/dL/unit * Nutritional / Prandial insulin per carb ratio of 1 unit per 5 grams CHO consumed * A1c added to d/c instructions * Please note that the plan above was derived based on current level of insulin resistance and hospital stress. These recommendations are appropriate for inpatient admission only. Plan of care upon discharge will need to be reassessed to avoid potential outpatient hypo/hyperglycemia. Thank you.
[2016-07-13] MEDS: INSULIN ASPART 100 UNITS/ML 3 ML PEN SC SCH ×3 (13:53→20:08)
[2016-07-13 13:54] VITALS: BP 172/88; PULSE 71; TEMP 36.8; BMI 28.0; BMI 28.2
[2016-07-13] MEDS ORDERED: LEVOFLOXACIN / D5W 750 MG in PREMIXED IN D5W 150 ML IV SCH (14:00)
[2016-07-13] MEDS ORDERED: PROMETHAZINE HCL INJ 12.5 MG in SODIUM CHLORIDE 0.9% 50ML 50 ML IV PRN (14:00)
[2016-07-13 15:17] LABS: PARTIAL THROMBOPLASTIN RATIO 0.9; PROTHROMBIN TIME (PATIENT) 11.1 SECONDS (9.0-12.0)
[2016-07-13 15:42] LABS: BUN/CREATININE RATIO 20.9 (10-20); CALCIUM 8.1 mg/dl (8.5-10.1); POTASSIUM 4.5 mmol/L (3.5-5.1)
[2016-07-13 16:00] VITALS: Ht 172.7 cm; Wt 83.6 kg
[2016-07-13] MEDS ORDERED: ENOXAPARIN 40 MG/0.4 ML SYR SC SCH (16:00)
[2016-07-13 16:07] VITALS: BP 162/96; PULSE 86; TEMP 37.3; O2SAT 95
[2016-07-13 20:14] VITALS: BP 148/82; PULSE 70; TEMP 36.8; O2SAT 94
[2016-07-13] MEDS ORDERED: INSULIN GLARGINE SOLOSTAR 100 UNITS/ML 3 ML PEN SC SCH (21:00)
[2016-07-14 00:16] VITALS: BP 154/88; PULSE 60; TEMP 36.9; O2SAT 93
[2016-07-14] MEDS ORDERED: INSULIN ASPART 100 UNITS/ML 3 ML PEN SC SCH (02:00)
[2016-07-14] MEDS: ACETAMINOPHEN 325 MG TAB PO PRN ×2 (03:03→09:26)
[2016-07-14 04:09] VITALS: BP 118/70; PULSE 63; TEMP 36.5; O2SAT 92
[2016-07-14] MEDS: SODIUM CHLORIDE 0.9% 1000ML 1,000 ML IV SCH (05:42)
[2016-07-14 06:12] LABS: BASO % 0.2 %; BASO ABS # 0.02 K/uL (0-0.2); COMPLETE YES; EOS % 4.1 %; HEMATOCRIT 42.2 % (42-52); IG% 0.3 %; LYMPH % 29.1 %; LYMPH ABS # 2.78 K/uL (1.2-3.4); MEAN CELL VOLUME 84.6 fL (80-100); MEAN CORPUSCULAR HEMOGLOBIN 29.3 pg (25-34); MEAN CORPUSCULAR HGB CONC 34.6 g/dl (32-36); MEAN PLATELET VOLUME 11.5 fL (7.4-10.4); MONO % 9.1 %; NEUT % 57.2 %; PLATELET COUNT 172 K/uL (130-400); RED BLOOD COUNT 4.99 M/uL (4.7-6.1); WHITE BLOOD COUNT 9.54 K/uL (4.8-10.8)
[2016-07-14 06:59] LABS: BUN/CREATININE RATIO 15.8 (10-20); CALCIUM 8.1 mg/dl (8.5-10.1); POTASSIUM 3.6 mmol/L (3.5-5.1)
[2016-07-14] MEDS: INSULIN ASPART 100 UNITS/ML 3 ML PEN SC SCH ×2 (07:58→11:53)
[2016-07-14 08:19] VITALS: BP 143/75; PULSE 63; TEMP 36.7; O2SAT 96
[2016-07-14] MEDS ORDERED: LEVOTHYROXINE SODIUM IV SCH (09:00)
[2016-07-14] MEDS ORDERED: LEVO-18 PO (10:21)
--- NOTE | 2016-07-14 10:23 | Discharge Instructions ---
Discharge Instructions Admission Reason for Admission: Diabetic Ketoacidosis Discharge Discharge Diagnosis / Problem: Diabetic ketoacidosis, sinusitis Discharge Goals Goal(s): Decrease discomfort, Improve function, Increase independence, Improve disease control, Learn about illness, Diagnostic testing, Prevent Disease Progression Activity Recommendations Activity Limitations: resume your previous activity Exercise/Sports Limitations: none Shower/Bathe: no limitations . Instructions / Follow-Up Instructions / Follow-Up Patient to be discharged home Please continue home regimen of lantus and humalog Advised against grazing and snakcs with high sugar contents Please keep appointment with Dr. Ritchie Please continue to take antibiotic levaquin once a day for 7 more days If worsening fevers, chills, abdominal pain, chest pain, please report to ER Current Hospital Diet Patient's current hospital diet: Diabetes Type 2 Diet, AHA Diet (Heart Healthy) Discharge Diet Recommended Diet: Diabetes Type 2 Diet Pending Studies Studies pending at discharge: no Laboratory Results Hemoglobin A1c Test 07/13/16 07:30 Range/Units Estimated Average Glucose 246 mg/dl Hemoglobin A1c 10.2 H 4.5-5.6 % Medical Emergencies . Who to Call and When: Medical Emergencies: If at any time you feel your situation is an emergency, please call 911 immediately. . Non-Emergent Contact Non-Emergency issues call your: Primary Care Provider Call Non-Emergent contact if: you have a fever, your pain is worsening . . "Provider Documentation" section prepared by Osmar Harrison. VTE Core Measure Inpt VTE Proph given/why not?: Enoxaparin (Lovenox)MARTINEZ, T.E.Lei. Stockings, SCD's
[2016-07-14 11:24] VITALS: BP 143/75; PULSE 63; TEMP 36.7; O2SAT 96
--- NOTE | 2016-07-14 11:32 | Discharge Summary ---
Discharge Summary Date of Service Jul 14, 2016. Discharge Summary Admission Date: Jul 13, 2016 at 11:56 Discharge Date: Jul 14, 2016 Discharge Disposition: Home Principal Diagnosis: DKA, dehydration Medication Reconciliation New Medications: Levofloxacin (Levaquin) 750 Mg Tab 750 MG PO DAILY for 7 Days, #7 TAB Continued Medications: Aspirin (Aspirin Ec) 81 Mg Tab 81 MG PO DAILY Enalapril Maleate (Vasotec) 20 Mg Tab 20 MG PO QPM Ergocalciferol (Vitamin D2) 2,000 Unit Tab 1000 UNITS PO DAILY Ibuprofen (Advil) 200 Mg Tab 400 MG PO BID PRN for Pain, TAB Insulin Glargine (Lantus) 100 Unit/Ml Inj 42 UNITS SC AMPM Insulin Lispro (Human) (Humalog) 100 Unit/Ml Inj 25 UNITS SC TIDM Levothyroxine Sodium (Levothyroxine Sodium) 137 Mcg Tab 137 MCG PO DAILY Multivitamin (Multivitamin) Tab 1 TAB PO DAILY, TAB Pravastatin Sodium (Pravastatin Sodium) 80 Mg Tab 80 MG PO HS Discontinued Medications: Amoxicillin & Pot Clavulanate (Augmentin 875-125 mg) 1 Tab Tab 1 TAB PO BID Discharge Exam Review of Systems: Constitutional: No chills, No fever Respiratory: No cough, No sputum Cardiovascular: No chest pain, No orthopnea Abdomen: No diarrhea, No nausea, No pain, No vomiting Musculoskeletal: No joint pain, No muscle pain Genitourinary - Female: No dysuria, No urinary frequency, No urinary urgency Neurologic: No paralysis, No weakness Physical Exam: General Appearance: WD/WN, no apparent distress Neck: supple, no adenopathy Respiratory/Chest: chest non-tender, lungs clear, normal breath sounds Cardiovascular: no edema, no gallop Abdomen / GI: non tender, soft Neurologic/Psychiatric: alert, oriented x 3 Hospital Course 70 y/o male with a history of DM II, recurrent sinusitis, HTN, HLD, hypothyroidism who presented to the ED on 07/13 with nausea, vomiting, and elevated blood sugars. Acute episode of sinusitis started 2 weeks ago and blood sugars went up to mid 200s to low 300s around the same time. Pt began treatment with Augmentin on 07/09. 2 days later developed N/V, generalized myalgias, weakness and fatigue. CXR no acute disease. Abd/pelvis CT shows chronic pancreatitis and pancreatic calcification causing obstruction and dilation of pancreatic duct. WBC elevated at 13.89. Lipase elevated at 498. Beta hydroxybutyric acid elevated at 15.86. 3+ ketones in urine. AVSS. Received 1L NSS bolus, then running at rate of 200 cc/hr. Diabetic ketoacidosis, h/o diabetes mellitus type 2--Last HgbA1c on record was in 2008. Pt typically has BSGs in 170s. Takes Lantus 42 units SC BID and Humalog ~22 units SC BID-QID -Admit to telemetry -NSS at 200 cc/hr -Repeat PRP at 1300 AG 8, anion gap this am was 12 -Blood cultures x 2 pending -Increase Lantus to 45 units SC BID -Insulin sliding scale -Check BSGs q6h while NPO -Pharmacy glycemic management consult -Recheck HgbA1c 10.2, recent changes in lantus and humalog, will f/u with Dr Ritchie as scheduled Acute sinusitis -Levaquin 750 mg IV qd converted to PO for 7 days on discharge Chronic pancreatitis--pt denies any history of pancreatitis, but calcifications on CT indicate chronic pancreatitis -Lipase 498 on arrival, this may be baseline due to chronic disease -Recheck lipase in am 108, tolerating diabetic diet HTN--stable -Hold enalapril while NPO due to vomiting -Cover with hydralazine 10 mg IV q6h prn SBP >180 HLD -Hold pravastatin while NPO due to vomiting, restart on discharge Hypothyroidism -Hold Synthroid PO while NPO due to vomiting, restart on discharge -Synthroid 68.5 mcg IV qd DVT prophylaxis -Enoxaparin 40 mg SC q24h -GENEVIEVE Love Code Status -Level V, DO NOT RESUSCITATE Total Time Spent: Greater than 30 minutes This includes examination of the patient, discharge planning, medication reconciliation, and communication with other providers. Discharge Instructions Please refer to the electronic Patient Visit Report (Discharge Instructions) for additional information.
[2016-07-14 13:08] VITALS: BP 152/79; PULSE 57; TEMP 36.7; O2SAT 96
[2016-10-19] MEDS ORDERED: DOXY100C2 PO (02:39)
== END 2016-07-14 14:29 | disposition home or self-care (01) | DRG 638 ==
LOC: ENRESERVDT → ENRESERVTM → C.EDB 07:00 → C.2E 11:56
PROVIDERS: ADMIT Hospitalist; ATTEND Hospitalist
DX: E13.10 Other specified diabetes mellitus with ketoacidosis without coma (principal); K86.1 Other chronic pancreatitis; J01.91 Acute recurrent sinusitis, unspecified; E86.0 Dehydration; I10 Essential (primary) hypertension; E78.5 Hyperlipidemia, unspecified; E03.9 Hypothyroidism, unspecified; Z79.4 Long term (current) use of insulin; Z79.82 Long term (current) use of aspirin; Z79.899 Other long term (current) drug therapy; Z87.891 Personal history of nicotine dependence; Z66 Do not resuscitate

== ENCOUNTER 2016-10-21 01:52 | Observation (INO) | payer BC ==
[~2016-10-21] VITALS: Ht 172.7 cm; Wt 85.0 kg
[~2016-10-21 01:52] MED LIST changes: -ASPEC325 PO; +ASPI81TA28 PO; +DOXY100C2 PO; +ERGO1TAB12 PO; -HMLI SC; +INSU100I SC; -LEVO1TAB PO; -MISC1CAP65 PO; +MULT-506 PO; +SYN137 PO
[2016-10-21 02:21] LABS: BASO % 0.1 %; BASO ABS # 0.02 K/uL (0-0.2); COMPLETE YES; HEMATOCRIT 45.1 % (42-52); IG% 0.5 %; LYMPH % 14.7 %; LYMPH ABS # 2.12 K/uL (1.2-3.4); MEAN CELL VOLUME 86.6 fL (80-100); MEAN CORPUSCULAR HEMOGLOBIN 29.2 pg (25-34); MEAN CORPUSCULAR HGB CONC 33.7 g/dl (32-36); MEAN PLATELET VOLUME 10.9 fL (7.4-10.4); MONO % 7.4 %; NEUT % 76.3 %; PLATELET COUNT 182 K/uL (130-400); RED BLOOD COUNT 5.21 M/uL (4.7-6.1)
[2016-10-21 02:38] LABS: ALT/SGPT 30 U/L (12-78); AST/SGOT 22 U/L (15-37); BLOOD UREA NITROGEN 26 mg/dl (7-18); BUN/CREATININE RATIO 23.6 (10-20); CALCIUM 9.1 mg/dl (8.5-10.1); CARBON DIOXIDE 29 mmol/L (21-32); CHLORIDE 107 mmol/L (98-107); GLUCOSE 105 mg/dl (70-99); POTASSIUM 4.3 mmol/L (3.5-5.1); SODIUM 144 mmol/L (136-145)
[2016-10-21] MEDS ORDERED: FLM4 PO (02:39)
[2016-10-21 02:49] LABS: ALKALINE PHOSPHATASE 66 U/L (45-117)
--- NOTE | 2016-10-21 03:06 | EMERGENCY ROOM VISIT NOTE ---
History Report prepared by Karey: Rikki Arriaga Under the Supervision of: Dr. Deborah Cote D.O. First contact with patient: 01:54 Chief Complaint: CARDIAC ASSESSMENT Stated Complaint: CARDIAC ASSESSMENT History of Present Illness The patient is a 71 year old male who presents to the Emergency Room via EMS with complaints of improving hypoglycemia occurring tonight. He has a history of diabetes. He does not have a history of a severe hypoglycemic episodes occurring in the past year. His blood sugar level was 170 before bed. He ate some strawberries, took Lantus and Humalog before bed. He is unsure if he took an extra dose of insulin tonight. The patient had gone to sleep but woke up when he felt his blood sugar levels had gone down. He lied down on the kitchen floor when he started to feel diaphoretic. He denies hitting his head. As per , the patient had just returned to bed when he looked severely diaphoretic and [id number]. She checked his blood sugar level which was in the 40s. As per EMS, the patient's blood sugar level was 60. He was also hypothermic at 89 degrees Fahrenheit and bradycardic in the 30s. He was given 450 cc of warm NSS. His blood sugar level in the Emergency Room was 93. As per , the patient's diet has not changed in the past week. He ate dinner tonight as normal. As per the patient has been having cold-like symptoms for the past 5 days. He has been having a headache, sore throat, cough, and weakness which has improved with Doxycycline as prescribed by his PCP. He started on the Doxycycline yesterday. The patient currently denies any pain. He denies any chest pain, shortness of breath, abdominal pain, or any other complaints. He has chronic, intermittent lower extremity cramping and swelling but denies any changes. Source of History: patient, spouse/significant other Onset: tonight Position: other (global) Symptom Intensity: blood sugar level of 93 in the Emergency Room Quality: other (hypoglycemia) Timing: other (improving) Modifying Factors (Relieving): other (450 cc of warm NSS) Associated Symptoms: + headache, + sorethroat, + cough, + weakness, No chest pain, No SOB, No abdominal pain Review of Systems See HPI for pertinent positives & negatives. A total of 10 systems reviewed and were otherwise negative. Past Medical & Surgical Medical Problems: (1) DKA (diabetic ketoacidosis) Family History Bladder cancer Diabetes mellitus Hyperlipidemia Hypertension Myocardial infarction Social History Smoking Status: Former Smoker Drug Use: none Marital Status: Housing Status: lives with family Occupation Status: retired Current/Historical Medications Scheduled Aspirin (Aspirin Ec), 81 MG PO DAILY Doxycycline Hyclate (Vibramycin), 100 MG PO BID Enalapril Maleate (Vasotec), 20 MG PO QPM Ergocalciferol (Vitamin D2), 1,000 UNITS PO DAILY Insulin Glargine (Lantus), 42 UNITS SC AMPM Insulin Lispro (Human) (Humalog), 25 UNITS SC TIDM Levothyroxine Sodium (Levothyroxine Sodium), 137 MCG PO DAILY Multivitamin (Multivitamin), 1 TAB PO DAILY Pravastatin Sodium (Pravastatin Sodium), 80 MG PO HS Tamsulosin HCl (Tamsulosin HCl), 0.4 MG PO DAILY Allergies Coded Allergies: No Known Allergies (Verified , 10/21/16) Physical Exam Vital Signs Date Time Temp Pulse Resp B/P (MAP) Pulse Ox O2 Delivery O2 Flow Rate FiO2 10/21/16 04:37 36.5 72 18 141/61 94 Room Air 10/21/16 04:13 57 18 116/62 94 10/21/16 03:09 35.0 53 16 107/48 96 Room Air 10/21/16 02:30 68 16 131/84 95 Room Air 10/21/16 02:27 49 10/21/16 02:06 97 Room Air 10/21/16 02:01 59 10/21/16 02:00 34.3 61 18 163/86 97 Room Air Physical Exam HEENT: Head - normocephalic and atraumatic Pupils are equal, round, and reactive to light. Extraocular eye muscles are intact, and sclera are anicteric. Nose - moist nasal mucosa without discharge. Mouth - moist buccal mucosa. Oropharynx is nonerythematous and there is no tonsillar exudate or edema noted. Neck: Supple; no JVD, nuchal rigidity, cervical lymphadenopathy. Heart: Regular rate and rhythm. There is a normal S1 and S2 with no murmurs, clicks, or gallops appreciated. Lungs: Clear to auscultation bilaterally with no wheezes, rales, or rhonchi. Abdomen: Soft, completely nontender, nondistended, with good bowel sounds. There are no palpable pulsatile masses or hepatosplenomegaly. There is no guarding, rigidity, or rebound noted. Extremities: No evidence of cyanosis, clubbing, or edema. There are easily palpable peripheral pulses. Skin: warm and dry with good turgor and no rashes. Medical Decision & Procedures Laboratory Results 10/21/16 02:00 Red Blood Count 5.21, Mean Corpuscular Volume 86.6, Mean Corpuscular Hemoglobin 29.2, Mean Corpuscular Hemoglobin Concent 33.7, Mean Platelet Volume 10.9, Neutrophils (%) (Auto) 76.3, Lymphocytes (%) (Auto) 14.7, Monocytes (%) (Auto) 7.4, Eosinophils (%) (Auto) 1.0, Basophils (%) (Auto) 0.1, Neutrophils # (Auto) 10.98, Lymphocytes # (Auto) 2.12, Monocytes # (Auto) 1.06, Eosinophils # (Auto) 0.15, Basophils # (Auto) 0.02 10/21/16 02:00 Test 10/21/16 02:00 White Blood Count 14.40 K/uL (4.8-10.8) Red Blood Count 5.21 M/uL (4.7-6.1) Hemoglobin 15.2 g/dL (14.0-18.0) Hematocrit 45.1 % (42-52) Mean Corpuscular Volume 86.6 fL (80-100) Mean Corpuscular Hemoglobin 29.2 pg (25-34) Mean Corpuscular Hemoglobin Concent 33.7 g/dl (32-36) Platelet Count 182 K/uL (130-400) Mean Platelet Volume 10.9 fL (7.4-10.4) Neutrophils (%) (Auto) 76.3 % Lymphocytes (%) (Auto) 14.7 % Monocytes (%) (Auto) 7.4 % Eosinophils (%) (Auto) 1.0 % Basophils (%) (Auto) 0.1 % Neutrophils # (Auto) 10.98 K/uL (1.4-6.5) Lymphocytes # (Auto) 2.12 K/uL (1.2-3.4) Monocytes # (Auto) 1.06 K/uL (0.11-0.59) Eosinophils # (Auto) 0.15 K/uL (0-0.5) Basophils # (Auto) 0.02 K/uL (0-0.2) RDW Standard Deviation 40.1 fL (36.4-46.3) RDW Coefficient of Variation 12.5 % (11.5-14.5) Immature Granulocyte % (Auto) 0.5 % Immature Granulocyte # (Auto) 0.07 K/uL (0.00-0.02) Anion Gap 8.0 mmol/L (3-11) Est Creatinine Clear Calc Drug Dose 66.3 ml/min Estimated GFR () 78.4 Estimated GFR (Non- 67.7 BUN/Creatinine Ratio 23.6 (10-20) Calcium Level 9.1 mg/dl (8.5-10.1) Total Bilirubin 0.3 mg/dl (0.2-1) Aspartate Amino Transf (AST/SGOT) 22 U/L (15-37) Alanine Aminotransferase (ALT/SGPT) 30 U/L (12-78) Alkaline Phosphatase 66 U/L (45-117) Total Creatine Kinase 190 U/L (39-308) Creatine Kinase MB 5.7 ng/ml (0.5-3.6) Creatine Kinase MB Ratio 3.0 (0-3.0) Troponin I < 0.015 ng/ml (0-0.045) Total Protein 7.5 gm/dl (6.4-8.2) Albumin 3.8 gm/dl (3.4-5.0) Globulin 3.7 gm/dl (2.5-4.0) Albumin/Globulin Ratio 1.0 (0.9-2) Thyroid Stimulating Hormone (TSH) 3.280 uIu/ml (0.300-4.500) Laboratory results per my review. Procedure Navid Gamble applied ECG Indication: other (Hypoglycemia) Rate (beats per minute): 49 Rhythm: sinus bradycardia Findings: no acute ischemic change, no ectopy ED Course 0154: Past medical records reviewed. The patient was evaluated in room B01. A complete history and physical exam was performed. The patient's blood sugar level in the Emergency Room was 93. Laboratory studies were drawn as above. The patient had a twelve-lead EKG. He was observed on the satellite project site monitor. I attest that I have personally reviewed the patient's current medication list. Patient was found to have an elevated blood pressure and was referred to their primary doctor for recheck and further treatment once he is discharged. 0232: I reevaluated the patient who is resting comfortably. His temperature was 34.3 degrees Celsius. A bear-hugger was placed on him. His repeat blood sugar level was 107. 0402: I reevaluated the patient who is feeling better.I discussed findings and results with the patient and his . They verbalized agreement of the treatment plan. The patient will be evaluated for further management and care. 0456: I discussed the patient's case with Dr. Hodge, from Service. Medical Decision The patient presents to the Emergency Room with complaints of hypoglycemia. Differential diagnosis includes but is not limited to heart block, medication side effects, insulin overdose, underlying infection. His labs showed white count of 14.4, stable H&H, normal TSH and LFTs, glucose 107, negative cardiac enzymes, BUN of 26, creatinine 1.1 . The patient continued to have episodes of bradycardia while here in the emergency department. His temp did increase in blood sugar remained above 100. I'm concerned about the episodes of bradycardia which could be secondary to the hypothermia and or the hypoglycemia. The patient remains minimally stable at this time. I discussed the case with the [facility] and they will evaluate for further management. Consults Time Called: [phone] Consulting Physician: Dr. Hodge, from Service Returned Call: [phone] I discussed the patient's case with Dr. Hodge, from Service. Impression Primary Impression: Hypoglycemia Additional Impressions: Bradycardia Hypothermia Scribe Attestation The scribe's documentation has been prepared under my direction and personally reviewed by me in its entirety. I confirm that the note above accurately reflects all work, treatment, procedures, and medical decision making performed by me. Departure Information Dispostion Being Evaluated By Hospitalist Referrals Lilian Ritchie M.D. (PCP) Patient Instructions [facility] Problem Qualifiers
[2016-10-21] MEDS ORDERED: IV FLUIDS COMPLETED PRN (05:30)
[2016-10-21 06:00] VITALS: O2SAT 95
--- NOTE | 2016-10-21 06:05 | History and Physical ---
History & Physical Date & Time of Service: Oct 21, 2016 at 05:50 Chief Complaint: Cardiac Assessment Primary Care Physician: Lilian Ritchie M.D. History of Present Illness Source: patient The patient is a 8-year-old male who presents to the emergency department via EMS after an episode of blood sugar in the 40s. He takes Lantus insulin at bedtime, and also takes Humalog as well. He reports that he is been reusing his syringes, and when his blood sugar was 179 prior to bedtime tonight he decided to try to lower it with Humalog, and he thinks in retrospect that he had difficulty reading the numbers on the used syringe, and probably gave himself additional Humalog of unknown amount. Associated with a low blood sugar he was also hypothermic and bradycardic. When EMS brought him to the emergency department, he was hypothermic at 89F and bradycardic in the 30s. He was given 4 and 50 mL of warm normal saline and placed on a warming blanket. His heart rate then increased into the 80s, and his body temperature normalized as well. The patient had been recently started on treatment of doxycycline for a cough and cold like symptoms, which she reports had improved. He has not had any recent travel or sick exposures. Family History Bladder cancer Diabetes mellitus Hyperlipidemia Hypertension Myocardial infarction Social History Smoking Status: Former Smoker Drug Use: none Marital Status: Housing status: lives with significant other Occupational Status: retired Multi-Drug Resistant Organisms History of MDRO: No Allergies Coded Allergies: No Known Allergies (Verified , 10/21/16) Home Medications Scheduled Aspirin (Aspirin Ec), 81 MG PO DAILY Doxycycline Hyclate (Vibramycin), 100 MG PO BID Enalapril Maleate (Vasotec), 20 MG PO QPM Ergocalciferol (Vitamin D2), 1,000 UNITS PO DAILY Insulin Glargine (Lantus), 42 UNITS SC AMPM Insulin Lispro (Human) (Humalog), 25 UNITS SC TIDM Levothyroxine Sodium (Levothyroxine Sodium), 137 MCG PO DAILY Multivitamin (Multivitamin), 1 TAB PO DAILY Pravastatin Sodium (Pravastatin Sodium), 80 MG PO HS Tamsulosin HCl (Tamsulosin HCl), 0.4 MG PO DAILY Review of Systems The patient denies chest pain, palpitations, shortness of breath, lower extremity swelling, vision change, hearing change, sore throat, fevers, chills, sweats, weight change, fatigue, nausea, vomiting, abdominal pain, pelvic pain, blood in urine or stool, dysuria, urinary frequency or urgency, lightheadedness , dizziness, headache, memory loss, rash, abnormal bruising or bleeding, imbalance, focal or generalized weakness, numbness or tingling in arms or legs, arthralgias or myalgias, back or neck pain, night sweats, or allergy symptoms. The review of systems is otherwise negative other than for that already noted above, and at least 10 systems have been reviewed. Physical Exam Vital Signs Date Time Temp Pulse Resp B/P (MAP) Pulse Ox O2 Delivery O2 Flow Rate FiO2 10/21/16 05:40 68 16 138/88 96 Room Air 10/21/16 04:37 36.5 72 18 141/61 94 Room Air 10/21/16 04:13 57 18 116/62 94 10/21/16 03:09 35.0 53 16 107/48 96 Room Air 10/21/16 02:30 68 16 131/84 95 Room Air 10/21/16 02:27 49 10/21/16 02:06 97 Room Air 10/21/16 02:01 59 10/21/16 02:00 34.3 61 18 163/86 97 Room Air The patient is awake, well-developed and adequately nourished, alert and oriented 3, normocephalic and atraumatic, lying in bed and in no acute distress. HEENT--PERRL, EOMI, mucous membranes and oropharynx dry. Neck--supple, no JVD or bruits, thyroid normal, trachea midline, no adenopathy. Heart--normal S1 and S2, no extra beats, no murmurs, rubs or gallops. Lungs--clear bilaterally with good air movement, no respiratory distress, no accessory muscle use. Abdomen--normal bowel sounds and soft, nontender and nondistended, no hernias or masses, no organomegaly. Extremities--no cyanosis, clubbing or edema. There are good distal pulses b/l. Dermatologic--normal skin turgor, normal color, warm and dry, no abnormal lymph nodes, no rash. Neurologic--cranial nerves II through XII grossly intact. Rheumatologic--normal range of motion, nontender, muscles and joints. Psychiatric--normal affect. Diagnostics Laboratory Results Results Past 24 Hours Test 10/21/16 01:58 10/21/16 02:00 10/21/16 02:30 Range/Units Bedside Glucose 93 107 70-99 mg/dl White Blood Count 14.40 4.8-10.8 K/uL Red Blood Count 5.21 4.7-6.1 M/uL Hemoglobin 15.2 14.0-18.0 g/dL Hematocrit 45.1 42-52 % Mean Corpuscular Volume 86.6 80-100 fL Mean Corpuscular Hemoglobin 29.2 25-34 pg Mean Corpuscular Hemoglobin Concent 33.7 32-36 g/dl Platelet Count 182 130-400 K/uL Mean Platelet Volume 10.9 7.4-10.4 fL Neutrophils (%) (Auto) 76.3 % Lymphocytes (%) (Auto) 14.7 % Monocytes (%) (Auto) 7.4 % Eosinophils (%) (Auto) 1.0 % Basophils (%) (Auto) 0.1 % Neutrophils # (Auto) 10.98 1.4-6.5 K/uL Lymphocytes # (Auto) 2.12 1.2-3.4 K/uL Monocytes # (Auto) 1.06 0.11-0.59 K/uL Eosinophils # (Auto) 0.15 0-0.5 K/uL Basophils # (Auto) 0.02 0-0.2 K/uL RDW Standard Deviation 40.1 36.4-46.3 fL RDW Coefficient of Variation 12.5 11.5-14.5 % Immature Granulocyte % (Auto) 0.5 % Immature Granulocyte # (Auto) 0.07 0.00-0.02 K/uL Sodium Level 144 136-145 mmol/L Potassium Level 4.3 3.5-5.1 mmol/L Chloride Level 107 98-107 mmol/L Carbon Dioxide Level 29 21-32 mmol/L Anion Gap 8.0 3-11 mmol/L Blood Urea Nitrogen 26 7-18 mg/dl Creatinine 1.10 0.60-1.40 mg/dl Est Creatinine Clear Calc Drug Dose 66.3 ml/min Estimated GFR () 78.4 Estimated GFR (Non- 67.7 BUN/Creatinine Ratio 23.6 10-20 Random Glucose 105 70-99 mg/dl Calcium Level 9.1 8.5-10.1 mg/dl Total Bilirubin 0.3 0.2-1 mg/dl Aspartate Amino Transf (AST/SGOT) 22 15-37 U/L Alanine Aminotransferase (ALT/SGPT) 30 12-78 U/L Alkaline Phosphatase 66 45-117 U/L Total Creatine Kinase 190 39-308 U/L Creatine Kinase MB 5.7 0.5-3.6 ng/ml Creatine Kinase MB Ratio 3.0 0-3.0 Troponin I < 0.015 0-0.045 ng/ml Total Protein 7.5 6.4-8.2 gm/dl Albumin 3.8 3.4-5.0 gm/dl Globulin 3.7 2.5-4.0 gm/dl Albumin/Globulin Ratio 1.0 0.9-2 Thyroid Stimulating Hormone (TSH) 3.280 0.300-4.500 uIu/ml EKG EKG shows sinus bradycardia at 49 bpm, left axis deviation. Compared to EKG A. fib rate 2016 when body temperature was normal, there is no longer a RBBB and LAFB, and then now is present and inferior KS. His EKG will be repeated when by temperatures has normalized. Impression Assessment and Plan Hypoglycemia/diabetes mellitus--patient's hypoglycemic event is likely secondary to excessive levels of Humalog given at bedtime. He's been advised to minimize the use of him Humalog at bedtime in the future. He will be admitted, his blood sugar will be allowed to return to normal range, and then can be started on a reduced dosing of Lantus to half of his usual 42 units in the morning, which can be made up later on in the day if necessary, and should be able to resume his usual 42 units subcutaneous twice a day starting this evening. We will hold his standard baseline Humalog correction of 25 units subcutaneous 3 times a day with meals. Hypothermic/bradycardia--likely secondary to severe hypoglycemia. Both have resolved with warming blanket, which will be discontinued during the remainder of admission. He'll be admitted to the telemetry unit for close monitoring of vital signs. We'll continue enteric coated aspirin 81 mg by mouth daily, and hold enalapril 20 mg by mouth every evening until looks apparent that his blood pressure has stabilized. Hypothyroidism--continue levothyroxine sodium at 137 g by mouth daily. Hypercholesterolemia--continue pravastatin 80 mg by mouth at bedtime. BPH--continue tamsulosin 0.4 mg by mouth at bedtime. Level of Care Telemetry Advanced Directives Existing Advance Directive: No Existing Living Will: No Existing Power of Forwarder Operator: No Resuscitation Status FULL RESUSCITATION VTE Prophylaxis VTE Risk Assessment Done? Y/N: Yes Risk Level: Moderate Given or contraindicated: SCD's
[2016-10-21 06:09] VITALS: BP 145/78; PULSE 79; TEMP 36.4; O2SAT 95; Ht 172.7 cm; Wt 85.0 kg
[2016-10-21] MEDS ORDERED: ONDANSETRON INJ 2 MG/ML 2 ML VIAL IV PRN (06:15)
[2016-10-21] MEDS ORDERED: GLUCOSE 10 TABS/TUBE PO PRN (06:15)
[2016-10-21] MEDS ORDERED: GLUCOSE 40% GEL 15 GM TUBE PO PRN (06:15)
[2016-10-21] MEDS ORDERED: NITROGLYCERIN 0.4 MG SL PER TAB CHARGE SL PRN (06:15)
[2016-10-21] MEDS ORDERED: ACETAMINOPHEN 325 MG TAB PO PRN (06:15)
[2016-10-21] MEDS ORDERED: DEXTROSE 50% 50 ML SYR IV PRN (06:15)
[2016-10-21] MEDS ORDERED: GLUCAGON FOR INJ 1 MG VIAL SQ PRN (06:15)
[2016-10-21] MEDS ORDERED: INSULIN ASPART 100 UNITS/ML 3 ML PEN SC SCH (07:00)
[2016-10-21 07:40] VITALS: BP 145/81; PULSE 65; TEMP 36.5; O2SAT 97
--- NOTE | 2016-10-21 08:58 | Discharge Instructions ---
Discharge Instructions Date of Service Oct 21, 2016. Admission Reason for Admission: Hypoglycemia, Hypothermia Discharge Discharge Diagnosis / Problem: Hypoglycemia due to insulin use, Hypothermia Discharge Goals Goal(s): Improve function, Improve disease control Activity Recommendations Activity Limitations: resume your previous activity Lifting Limitations: none Exercise/Sports Limitations: as tolerated May Resume Sexual Activity: when tolerated Shower/Bathe: no limitations Driving or Machine Use: no limitations . Instructions / Follow-Up Instructions / Follow-Up Medications: no changes made - LANTUS and HUMALOG: please closely monitor your blood sugars this week if your AM sugar is less than 120, only take half of your normal Lantus dose (21 units) follow the same rule at bedtime, if your sugars are low, only take half the normal Lantus continue Humalog carbohydrate coverage and sliding scale FOLLOW UP - please call Dr. Ritchie's office tomorrow to schedule an appointment later in the week to go over insulin dosing and your observation for hypoglycemia Current Hospital Diet Patient's current hospital diet: AHA Diet (Heart Healthy), Diabetes Type 2 Diet Discharge Diet Recommended Diet: AHA Diet (Heart Healthy), Diabetes Type 2 Diet Pending Studies Studies pending at discharge: no Laboratory Results Last Resulted CBC 10/21/16 02:00 Red Blood Count 5.21, Mean Corpuscular Volume 86.6, Mean Corpuscular Hemoglobin 29.2, Mean Corpuscular Hemoglobin Concent 33.7, Mean Platelet Volume 10.9, Neutrophils (%) (Auto) 76.3, Lymphocytes (%) (Auto) 14.7, Monocytes (%) (Auto) 7.4, Eosinophils (%) (Auto) 1.0, Basophils (%) (Auto) 0.1, Neutrophils # (Auto) 10.98, Lymphocytes # (Auto) 2.12, Monocytes # (Auto) 1.06, Eosinophils # (Auto) 0.15, Basophils # (Auto) 0.02 Last Resulted BMP 10/21/16 02:00 Medical Emergencies . Who to Call and When: Medical Emergencies: If at any time you feel your situation is an emergency, please call 911 immediately. . Non-Emergent Contact Non-Emergency issues call your: Primary Care Provider Call Non-Emergent contact if: you have any medication questions . . "Provider Documentation" section prepared by Barrie Bell. . VTE Core Measure Inpt VTE Proph given/why not?: SCD's [place] Drug Monitoring Program Search Results: no issues identified
[2016-10-21] MEDS ORDERED: ASPIRIN 81 MG ECTAB PO SCH (09:00)
[2016-10-21] MEDS ORDERED: TAMSULOSIN HCL 0.4 MG CAP PO SCH (09:00)
[2016-10-21] MEDS ORDERED: MULTIVITAMIN TAB PO SCH (09:00)
[2016-10-21 09:04] VITALS: BP 145/81; PULSE 65; TEMP 36.5; O2SAT 97
--- NOTE | 2016-10-21 09:20 | Discharge Summary ---
Discharge Summary Date of Service Oct 21, 2016. Discharge Summary Admission Date: Oct 21, 2016 at 05:07 Discharge Date: Oct 21, 2016 Discharge Disposition: Home Principal Diagnosis: Hypoglycemia due to excessive insulin dose Problems/Secondary Diagnoses: Hypothermia secondary to hypoglycemia Bradycardia secondary to hypothermia Procedures: none Consultations: none Medication Reconciliation Continued Medications: Aspirin (Aspirin Ec) 81 Mg Tab 81 MG PO DAILY Doxycycline Hyclate (Vibramycin) 100 Mg Cap 100 MG PO BID, #20 Enalapril Maleate (Vasotec) 20 Mg Tab 20 MG PO QPM Ergocalciferol (Vitamin D2) 2,000 Unit Tab 1000 UNITS PO DAILY Insulin Glargine (Lantus) 100 Unit/Ml Inj 42 UNITS SC AMPM Insulin Lispro (Human) (Humalog) 100 Unit/Ml Inj 25 UNITS SC TIDM Levothyroxine Sodium (Levothyroxine Sodium) 137 Mcg Tab 137 MCG PO DAILY Multivitamin (Multivitamin) Tab 1 TAB PO DAILY, TAB Pravastatin Sodium (Pravastatin Sodium) 80 Mg Tab 80 MG PO HS Tamsulosin HCl (Tamsulosin HCl) 0.4 Mg Cap 0.4 MG PO DAILY Discharge Exam Patient was very anxious to leave the hospital. Brought in for observation due to hypoglycemia, hypothermia, bradycardia. This AM his temperature is normal, vitals normal and his most recent glucose reading was 206 prior to receiving his Lantus. He is refusing to eat, refusing medications, he has himself dressed and wants to go home. I discussed the events of his hypoglycemia. He reports that he will get occasional hypoglycemia when he does not eat enough or when he is working excessively. He has never had hypoglycemia this low. He thinks that he took too much Humalog last night for blood sugar of 175. He was brought to the ED via EMS for blood sugar of 40, temperature of 89 degrees Fahrenheit and bradycardia. All of his issues quickly corrected with glucose and warming blankets. He is very upset about being placed on observation due to the cost and feels he should have been made a full admission. I explained to him the reason for observation but he was very upset and ready to leave. I went over the importance of keeping a very close eye on his sugars the next several days. He said he was on Lantus 42 units BID for several months now. I told him to cut the Lantus dose in half if his sugars are low and to not give extra Humalog for sugars below 200. He said he would call the office of Dr. Ritchie tomorrow to get an appointment for later in the week and he would log his sugars several times a day for the next week. Review of Systems: Constitutional: No fever, No chills, No sweats, No weight loss, No weakness , No fatigue, No problem reported Eyes: No worsening of vision, No eye pain, No redness, No discharge, No diplopia, No problem reported ENT: No hearing loss, No unusual epistaxis, No nasal symptoms, No sore throat, No tinnitus, No dental problems, No trouble swallowing, No problem reported Respiratory: No cough, No sputum, No wheezing, No shortness of breath, No dyspnea on exertion, No dyspnea at rest, No hemoptysis, No problem reported Cardiovascular: No chest pain, No orthopnea, No PND, No edema, No claudication, No palpitations, No problem reported Abdomen: No pain, No nausea, No vomiting, No diarrhea, No constipation, No GI bleeding, No problem reported Musculoskeletal: No joint pain, No muscle pain, No swelling, No calf pain, No problem reported Genitourinary - Male: No hematuria, No dysuria, No urinary frequency, No urinary urgency Neurologic: No memory loss, No paralysis, No weakness, No numbness/tingling , No vertigo, No balance problems, No problem reported Psychiatric: No depression symptoms, No anhedonism, No anxiety, No insomnia , No substance abuse, No problem reported Endocrine: No fatigue, No excessive thirst, No excessive urination, No problem reported Hematologic / Lymphatic: No abnormal bleeding/bruising, No clotting problems , No swollen lymph nodes, No night sweats, No problem reported Integumentary: No rash, No itch, No new/changing skin lesions, No color change, No bleeding, No problem reported Physical Exam: General Appearance: WD/WN, no apparent distress Eyes: normal inspection, EOMI, sclerae normal ENT: normal ENT inspection, hearing grossly normal, pharynx normal Neck: supple, no adenopathy, no JVD, trachea midline Respiratory/Chest: chest non-tender, lungs clear, normal breath sounds, no respiratory distress, no accessory muscle use Cardiovascular: regular rate, rhythm, no edema, no gallop, no JVD, no murmur , normal peripheral pulses Abdomen / GI: normal bowel sounds, non tender, soft, no organomegaly Extremities: normal inspection, no calf tenderness, normal capillary refill , no pedal edema, normal range of motion, pelvis stable 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 Triggered by excessive Humalog at bedtime. Patients glucose quickly corrected with dextrose administration and he was warmed with saline and warming blankets. Once his temperature returned to normal, his HR harpreet to a normal range. He felt completely normal in the morning and wanted to be discharged. Hypoglycemia/diabetes mellitus - low sugar caused by excessive bedtime Humalog, patient will not do this again has been on Lantus 42 units BID for several months, never had an episode like this instructed to check sugars 4 times a day for the next week, cut Lantus to half his dose for sugars <120 in the morning, night continue sliding scale and carb coverage with Humalog instructed to NOT take Humalog at night from now on will call for close follow up with Dr. Ritchie this week, will bring glucose reading with him Hypothermic/bradycardia--likely secondary to severe hypoglycemia resolved quickly with dextrose administration and warming blanket which was not needed after the ED vitals completely stable at time of discharge Recent URI illness -- reports symptoms resolving quickly with Doxycycline complete course of Doxycycline as prescribed by PCP Hypothyroidism--continue levothyroxine sodium at 137 g by mouth daily. Hypercholesterolemia--continue pravastatin 80 mg by mouth at bedtime. BPH--continue tamsulosin 0.4 mg by mouth at bedtime. Total Time Spent: Less than 30 minutes This includes examination of the patient, discharge planning, medication reconciliation, and communication with other providers. Discharge Instructions Please refer to the electronic Patient Visit Report (Discharge Instructions) for additional information. Follow-Up Dr. Ritchie later this week Additional Copies To Lilian Ritchie M.D.
[2016-10-21] MEDS ORDERED: INSULIN GLARGINE SOLOSTAR 100 UNITS/ML 3 ML PEN SC SCH ×2 (10:00→18:00)
[2016-10-21] MEDS ORDERED: PRAVASTATIN SOD 40 MG TAB PO SCH (17:00)
[2016-10-22] MEDS ORDERED: LEVOTHYROXINE 137 MCG TAB PO SCH (06:30)
== END 2016-10-21 09:15 | disposition home or self-care (01) ==
LOC: EDBD 01:52 → C.EDB 01:54 → C.MED 05:07 → EDBEDREQ 05:11 → ENRESERV 05:37
PROVIDERS: ADMIT Hospitalist; ATTEND Internal Medicine
DX: E16.0 Drug-induced hypoglycemia without coma (principal); R68.0 Hypothermia, not associated with low environmental temperature; R00.1 Bradycardia, unspecified; Z79.82 Long term (current) use of aspirin; Z79.4 Long term (current) use of insulin; E03.9 Hypothyroidism, unspecified; E78.00 Pure hypercholesterolemia, unspecified; N40.0 Benign prostatic hyperplasia without lower urinary tract symptoms

== ENCOUNTER → 2016-12-07 | Outpatient (CLI) | payer BC ==
[~2016-12-07] MED LIST changes: +FLM4 PO; -IBUP-1277 PO
--- NOTE | 2016-12-07 13:36 | DIAGNOSTIC IMAGING REPORT ---
Study: Fusion CT of the sinuses. HISTORY: Recurrent sinusitis. FINDINGS: All major sinuses are clear. The ostiomeatal units are patent bilaterally. Mild hyperplastic changes the nasal turbinates. No bony destructive process. IMPRESSION: 1. Mild hyperplastic change of the nasal turbinates. 2. Study is otherwise negative Electronically signed by: Devante Flores M.D. 12/07/2016 1:35 PM Dictated Date/Time: 12/07/2016 1:30 PM
== END | disposition home or self-care (01) ==
LOC: C.CTS 13:00
PROVIDERS: ATTEND Physician Assistant
DX: J34.3 Hypertrophy of nasal turbinates (principal)

== ENCOUNTER 2017-02-07 11:32 | Emergency (ER) | payer BC ==
[2017-02-07 11:36] VITALS: TEMP 36.4
[2017-02-07 11:48] VITALS: O2SAT 90
[2017-02-07 11:56] LABS: BASO % 0.1 %; BASO ABS # 0.02 K/uL (0-0.2); COMPLETE YES; EOS % 1.1 %; IG% 1.5 %; LYMPH % 18.2 %; LYMPH ABS # 2.87 K/uL (1.2-3.4); MEAN CELL VOLUME 87.3 fL (80-100); MEAN CORPUSCULAR HEMOGLOBIN 28.8 pg (25-34); MEAN PLATELET VOLUME 10.9 fL (7.4-10.4); MONO % 6.7 %; NEUT % 72.4 %; PLATELET COUNT 193 K/uL (130-400); RED BLOOD COUNT 5.27 M/uL (4.7-6.1); WHITE BLOOD COUNT 15.75 K/uL (4.8-10.8)
[2017-02-07] MEDS ORDERED: FENTANYL CITRATE INJ 50 MCG/1 ML 2 ML VIAL ONE (11:56)
[2017-02-07] MEDS ORDERED: OPTIRAY 320 IV PRN (12:00)
[2017-02-07 12:02] LABS: ISTAT CREATININE 1.5 mg/dl (0.6-1.3); ISTAT HEMOGLOBIN 15.6 g/dl (14.0-18.0); ISTAT IONIZED CALCIUM 1.14 mmol/l (1.12-1.32)
--- NOTE | 2017-02-07 12:02 | DIAGNOSTIC IMAGING REPORT ---
SINGLE VIEW CHEST CLINICAL HISTORY: Trauma. Fall from ladder. FINDINGS: An AP, portable, supine chest radiograph is compared to study dated 07/13/16. The examination is degraded by portable technique and patient rotation. The cardiomediastinal patient is status post midline sternotomy. The heart is mildly enlarged and there is atherosclerotic calcification of the thoracic aorta. The pulmonary vasculature is noncongested. There is no large pleural effusion. Hazy airspace opacities are questioned in the left midlung. A tiny pneumothorax is questioned at the left lung base. No right-sided pneumothorax is clearly seen. The skeletal structures are osteopenic. There are numerous acute bilateral rib fractures. A right scapular fracture is suspected. Subcutaneous emphysema is noted in the left lower neck and along the left chest wall. IMPRESSION: 1. There are numerous acute bilateral rib fractures. A right scapular fracture is also questioned. 2. Question a trace pneumothorax at the left lung base. 3. There are hazy airspace opacities in the left midlung. This could represent an infectious/inflammatory pneumonitis/aspiration or possibly pulmonary contusion. Clinical correlation will be required. 4. Subcutaneous gas is present in the left lower neck and along the left chest wall. Electronically signed by: Brandon Pickard M.D. 02/07/2017 12:01 PM Dictated Date/Time: 02/07/2017 11:58 AM
[2017-02-07 12:14] LABS: ALT/SGPT 111 U/L (12-78); BLOOD UREA NITROGEN 20 mg/dl (7-18); BUN/CREATININE RATIO 12.4 (10-20); CALCIUM 9.4 mg/dl (8.5-10.1); CARBON DIOXIDE 24 mmol/L (21-32); CHLORIDE 107 mmol/L (98-107); GLUCOSE 109 mg/dl (70-99); POTASSIUM 3.3 mmol/L (3.5-5.1); SODIUM 141 mmol/L (136-145)
[2017-02-07 12:17] LABS: ALKALINE PHOSPHATASE 71 U/L (45-117); AST/SGOT 114 U/L (15-37)
--- NOTE | 2017-02-07 12:20 | DIAGNOSTIC IMAGING REPORT ---
CT SCAN OF THE CERVICAL SPINE CLINICAL HISTORY: Trauma. Fall from ladder. COMPARISON STUDY: No priors. TECHNIQUE: CT scan of the cervical spine is performed from the skull base to the upper thoracic spine. Images are reviewed in the axial, sagittal, and coronal planes. IV contrast was not administered for this examination. A dose lowering technique was utilized adhering to the principles of ALARA. FINDINGS: Skeletal structures: The skeletal structures are heterogeneously osteopenic. There is no evidence of fracture or subluxation involving the cervical spine. Vertebral body height and alignment are maintained. The odontoid process and lateral masses are intact. The atlantoaxial articulation is preserved noting productive degenerative change. Anterior osteophytes are seen throughout. The spinous processes appear intact. There is moderate multilevel cervical spondylosis. Uncovertebral and facet arthropathy contribute sterile foraminal narrowing at most levels. There is a fracture of the left posterior first rib. Intervertebral discs: Moderate disc space narrowing is seen at C6-C7 and C7-T1. Mild disc space narrowing seen at the remaining cervical levels. Central canal: Posterior disc osteophyte complexes at C6-C7, C7-T1, and T1-T2 likely contribute to acquired compromise of the central canal. Soft tissues: The prevertebral and paraspinous soft tissues are within normal limits. Subcutaneous emphysema is noted in the left lower neck. This dissects into the pharyngeal tissues. There is atherosclerotic calcification of the carotid bulbs. The thyroid gland is atrophic. Calvarium: The visualized calvarium at the skull base appears intact. Brain parenchyma: Partially visualized brain parenchyma the skull base is within normal limits there are age-related involutional change. Sinuses and mastoids: The visualized paranasal sinuses are clear. The mastoid air cells are well pneumatized. Lung apices: Trace left apical pneumothorax is identified. The right apex is clear as imaged. IMPRESSION: 1. There is no evidence of fracture or subluxation involving the cervical spine. 2. A left posterior first rib fracture is partially imaged. 3. Trace left apical pneumothorax is identified and subcutaneous emphysema is seen in the left lower neck. 4. Osteopenia and spondylotic change as above. Electronically signed by: Brandon Pickard M.D. 02/07/2017 12:13 PM Dictated Date/Time: 02/07/2017 12:08 PM
--- NOTE | 2017-02-07 12:20 | DIAGNOSTIC IMAGING REPORT ---
CT SCAN OF THE BRAIN WITHOUT IV CONTRAST CLINICAL HISTORY: Trauma. Fall from ladder. COMPARISON STUDY: No priors. TECHNIQUE: Unenhanced axial CT scan of the brain is performed from the vertex to the skull base. 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 There are age-related involutional changes noting mild subcortical and periventricular microangiopathic change. There is no hemorrhage, mass effect, or evidence of acute territorial ischemia by CT criteria. Guy-white matter is preserved. No extra-axial fluid collection is seen. Ventricles, sulci, cisterns: Prominent secondary to involutional change. Intracranial vasculature: There is atherosclerotic calcification of the cavernous carotid arteries. Calvarium: The skeletal structures are osteopenic. No depressed calvarial fracture is seen. Sinuses and mastoids: The visualized paranasal sinuses are clear. The mastoid air cells are well pneumatized. Orbits: The bony orbits are grossly intact. IMPRESSION: 1. There is no hemorrhage, mass effect, or evidence of acute territorial ischemia by CT criteria. 2. Age-related changes and normal left frontal infarct as above. Electronically signed by: Brandon Pickard M.D. 02/07/2017 12:08 PM Dictated Date/Time: 02/07/2017 12:06 PM
--- NOTE | 2017-02-07 12:27 | DIAGNOSTIC IMAGING REPORT ---
THORACIC SPINE WITHOUT CT DOSE: HISTORY: Trauma EVALUATE FOR TRAUMA/INJURY TECHNIQUE: Multiaxial CT images of the thoracic spine were performed and reformatted in the sagittal and coronal plane without the use of contrast. A dose lowering technique was utilized adhering to the principles of ALARA. COMPARISON: None. FINDINGS: Vertebral body stature is remarkable for a nondisplaced fracture inferior endplate of T3. There Is moderate degree of surrounding soft tissue edematous change. There is moderate subcutaneous emphysema within the paraspinal musculature. There is a fracture of the spinous process of T8. There is a fracture of the spinous process of T9, and possibly T7.. There is a fracture of the left 11th rib, left ninth rib, left eighth rib, seventh rib, sixth rib, as well as the left first rib. Posterior pulmonary contusions appear to be present. There are multiple left-sided rib fractures. Subcutaneous air is identified in the left paraspinal musculature region. There is a nondisplaced fracture left first rib. IMPRESSION: 1. Fracture inferior anterior endplate T3. 2. Fracture spinous process of T7-T8 and T9. 3. Fractures of the left first rib, as well as the posterior sixth through 11th ribs. 4. Subcutaneous air within the posterior paraspinal musculature. 5. Posterior pulmonary contusions The above report was generated using voice recognition software. It may contain grammatical, syntax or spelling errors. Electronically signed by: Devante Flores M.D. 02/07/2017 12:26 PM Dictated Date/Time: 02/07/2017 12:17 PM
--- NOTE | 2017-02-07 12:33 | DIAGNOSTIC IMAGING REPORT ---
LUMBAR SPINE WITHOUT CT DOSE: 3005.52 mGy.cm HISTORY: Trauma. Pain. eval for fx TECHNIQUE: Multiaxial CT images of the lumbar spine were performed and reformatted in the sagittal and coronal plane without the use of contrast. A dose lowering technique was utilized adhering to the principles of ALARA. COMPARISON: None. FINDINGS: Vertebral body stature is unremarkable. Degenerative disc changes noted at L5-S1 with a vacuum disc present. There is no compression deformity. There is no subluxation. There are fractures of the left transverse processes of L1-L4. There are fractures of the right transverse processes of L2-L4. IMPRESSION: 1. Fractures of left transverse processes of L1-L4. 2. Fractures of the right transverse processes of L2-L4 3. No evidence for an acute compression deformity. The above report was generated using voice recognition software. It may contain grammatical, syntax or spelling errors. Electronically signed by: Devante Flores M.D. 02/07/2017 12:32 PM Dictated Date/Time: 02/07/2017 12:27 PM
[2017-02-07] MEDS ORDERED: ONDANSETRON INJ 2 MG/ML 2 ML VIAL IV STA (12:36)
[2017-02-07] MEDS ORDERED: FENTANYL CITRATE INJ 50 MCG/1 ML 2 ML VIAL IV STA (12:36)
--- NOTE | 2017-02-07 12:46 | DIAGNOSTIC IMAGING REPORT ---
CT SCAN OF THE CHEST, ABDOMEN, AND PELVIS WITH IV CONTRAST CLINICAL HISTORY: Trauma. Fall from ladder. COMPARISON STUDY: Chest x-ray dated 02/07/2017. TECHNIQUE: Following the IV administration of 93 of Optiray 320, CT scan of the chest, abdomen, and pelvis was performed from the thoracic inlet to the proximal femora. Images are reviewed in the axial, sagittal, and coronal planes. IV contrast was administered without complication. Automated dose control exposure was utilized. A dose lowering technique was utilized adhering to the principles of ALARA. The examination is degraded by streak artifact from the patient's arms which could not be elevated above the chest or abdomen. The examination is also significantly motion compromised. FINDINGS: CHEST: Thyroid: Atrophic versus surgically absent. Thoracic aorta: There is mild atherosclerotic calcification of the thoracic aorta, which is normal in caliber and demonstrates standard 3-vessel arch anatomy. No dissection is seen. No periaortic hematoma is identified. Pulmonary vasculature: The pulmonary trunk is normal in caliber. There are no filling defects identified in the central pulmonary vessels to indicate pulmonary was. Note that this examination was not protocoled for evaluation of the pulmonary arteries. Heart: The patient is status post midline sternotomy. The heart is top normal in size and without pericardial effusion. The coronary arteries are densely calcified. Lungs and pleural spaces: There is a small left apical and basilar pneumothorax. No right pneumothorax is seen. There is patchy airspace consolidation seen throughout the left lower lobe with evidence of at least 3 small pulmonary lacerations. These contain air-fluid levels likely presenting blood. The largest laceration measures up to 2 cm. Trace pneumothorax is seen at the left lung base. Dependent atelectasis is noted at the right lung base. Layering secretions are present within the right mainstem bronchus. Mediastinum: There is no mediastinal hematoma or lymphadenopathy. Josefina: Clear. Axillae: There is no axillary lymphadenopathy. Bony thorax: The skeletal structures are osteopenic. There is a comminuted fracture of the right scapula with numerous distracted fragments. Fracture extends from the base of the coracoid process, through the blade of the scapula, and also extends through the glenoid. The right humeral head appears intact. There are acute nondistracted right posterior lateral 3rd through 9th rib fractures. There are also age indeterminant anterior right 5th through 7th rib fractures. There are acute left posterior 1st through 12th rib fractures. Several of these are distracted. There are also anterolateral left 2nd through 7th rib fractures. There is a comminuted fracture involving the body of T3. There is only mild loss of height. Fracture does not extend through the posterior elements. No retropulsion of fragments is seen. There is associated paravertebral edema at this level. There are T7, T8, and T9 spinous process fractures. The remainder of the thoracic spine appears intact. Soft tissues: Subcutaneous emphysema is seen in the lower neck bilaterally, left greater than right. Gas dissects into the partially imaged pharyngeal soft tissues and along the left chest wall. ABDOMEN AND PELVIS: Liver: The contrast-enhanced liver is normal in size, contour, and attenuation. There is no intrahepatic or ductal dilatation. The hepatic veins and portal veins are patent. Gallbladder: Unremarkable. Spleen: Normal in size and attenuation. Small calcified splenic granulomas are observed. Pancreas: Evaluation of pancreas is degraded by motion artifact. There is a large calcification seen in the region of the pancreatic neck. The distal pancreas is markedly atrophic and the distal pancreatic duct is dilated. Probable calcifications are noted in the distal pancreas. The pancreatic head is normal as imaged. Adrenal glands: Unremarkable. Kidneys: The contrast enhanced kidneys images are cortical atrophy and are without hydronephrosis. The kidneys enhance symmetrically. There is a circumaortic left renal vein. Abdominal vasculature: The abdominal aorta is normal in course and caliber. Stomach and bowel: There is a small hiatal hernia. The stomach and duodenum otherwise normal in configuration. A tiny duodenal lipoma is incidentally noted. The small bowel and colon are normal in course and caliber. The appendix is well-visualized and normal. Peritoneum: There is no intraperitoneal free air or abdominal ascites. Lymphadenopathy: None. Pelvic viscera: There is median lobe hypertrophy of the prostate gland. The bladder is normal as visualized. Skeletal structures: The skeletal structures are osteopenic. There is an acute left transverse process of L1. There are acute bilateral transverse process fractures seen at L2, L3, and L4. There is an impacted and comminuted subcapital fracture of the right femur. The left proximal femur and the bony pelvis appear intact. Mild lumbosacral spondylosis is observed. There are bilateral pars defects at L5 without evidence of anterolisthesis at L5-S1. No lytic or blastic lesions are seen. A bone island is incidentally noted in the left ilium. Soft tissues: There is induration within the simultaneous fat of the ventral pelvic wall. IMPRESSION: 1. Streak and motion degraded examination. 2. There is a comminuted fracture of the right scapula with distracted fragments and extension through the glenoid. 3. There are numerous bilateral rib fractures as detailed above. Several of these ribs are fractured at 2 sites which places the patient at risk for a flail chest. 4. There is a small left-sided hemopneumothorax. No right pneumothorax is seen. 5. There is consolidative change throughout the left lower lobe consistent with pulmonary contusion. Small pulmonary lacerations are identified. 6. There is a comminuted fracture involving the body of T3. No retropulsed fragments are identified and there is only minimal loss of height. Fracture does not extend through the posterior elements. Thoracic spinous process fractures are also identified. 7. There are numerous transverse process fractures identified in lumbar spine as detailed above. 8. There is an impacted and comminuted subcapital fracture of the right femur. 9. There is no evidence of solid organ injury in the abdomen or pelvis. 10. Although the pancreas is not well assessed due to streak and motion, there is a large calcification in the region of the pancreatic neck, possibly located within the main duct. The distal pancreas is markedly atrophic with dilatation of the main pancreatic duct. The pancreatic head is normal as visualized. This may be related to a chronic obstructing stone within the pancreatic duct. Underlying mass lesion would be impossible to exclude. Nonemergent follow-up with endoscopy is recommended when the patient is clinically able. 11. Soft tissue contusion is noted in the ventral pelvic wall. 12. Subcutaneous gas is noted in the lower neck, left greater than right. This dissects in the pharyngeal soft tissues as well as along the left chest wall. 13. Additional findings as above. Findings were discussed with Dr. Fried in the emergency department at the time of interpretation. Electronically signed by: Brandon Pickard M.D. 02/07/2017 12:44 PM Dictated Date/Time: 02/07/2017 12:14 PM
[2017-02-07 13:05] VITALS: BP 167/93; PULSE 100; O2SAT 96
--- NOTE | 2017-02-07 13:20 | DIAGNOSTIC IMAGING REPORT ---
R FEMUR 2 VIEWS ROUTINE CLINICAL HISTORY: Right femur pain COMPARISON: CT scan dated 02/07/2017 DISCUSSION: There is an oblique femoral neck fracture. No additional femoral fractures are visualized. There is no dislocation. IMPRESSION: Oblique femoral neck fracture. Electronically signed by: Reece Montes M.D. 02/07/2017 1:18 PM Dictated Date/Time: 02/07/2017 1:17 PM
--- NOTE | 2017-02-07 13:21 | EMERGENCY ROOM VISIT NOTE ---
History Report prepared by Karey: Yana Rader Under the Supervision of: Dr. Ray Fried M.D. 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 The patient presents to the ED by EMS. He was reaching for something while on a ladder when he lost his balance and fell. He fell about 15 feet onto [place] grass. He reports pain in his right hip and right ribs and generally all over. He currently rates his discomfort as a 6/10 in severity. He denies any head pain, neck pain, or difficulty breathing other than pain with breathing. He had no loss of consciousness. He does complain of some right-sided abdominal pain. He has a history of heart disease and diabetes. 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 Review of Systems See HPI for pertinent positives & negatives. A total of 10 systems reviewed and were otherwise negative. Past Medical & Surgical Medical Problems: (1) DKA (diabetic ketoacidosis) (2) Heart disease Family History Bladder cancer Diabetes mellitus Hyperlipidemia Hypertension Myocardial infarction Social History Smoking Status: Current Some Day Smoker Drug Use: none Marital Status: Housing Status: lives with family Occupation Status: retired Current/Historical Medications Scheduled Aspirin (Aspirin Ec), 81 MG PO DAILY Enalapril Maleate (Vasotec), 20 MG PO QPM Ergocalciferol (Vitamin D2), 1,000 UNITS PO DAILY Insulin Glargine (Lantus), 42 UNITS SC AMPM Insulin Lispro (Human) (Humalog), 25 UNITS SC TIDM Levothyroxine Sodium (Levothyroxine Sodium), 137 MCG PO DAILY Multivitamin (Multivitamin), 1 TAB PO DAILY Pravastatin Sodium (Pravastatin Sodium), 80 MG PO HS Tamsulosin HCl (Tamsulosin HCl), 0.4 MG PO DAILY Allergies Coded Allergies: No Known Allergies (Verified , 02/07/17) Physical Exam Vital Signs Date Time Temp Pulse Resp B/P (MAP) Pulse Ox O2 Delivery O2 Flow Rate FiO2 02/07/17 13:05 100 18 167/93 96 Oxymask 7.0 02/07/17 12:33 95 18 177/91 97 Oxymask 10.0 02/07/17 12:17 88 18 174/70 02/07/17 11:48 90 8.0 02/07/17 11:48 90 Nasal Cannula 4.0 02/07/17 11:48 76 02/07/17 11:36 36.4 81 20 145/83 95 Nasal Cannula 4.0 Physical Exam The patient is pale and diaphoretic. Constitutional: Vital signs reviewed. Eyes: Pupils are equal round reactive to light. Conjunctiva are noninjected. ENT: Pharynx is clear without erythema or exudate. Mucous membranes are moist. No midline tenderness to the cervical spine. Respiratory: Clear to auscultation bilaterally. Breath sounds are equal bilaterally. 94% on 4 L. Cardiovascular: Regular rate and rhythm. No rubs or gallops. GI: Soft, nondistended. RUQ abdominal tenderness. No guarding. Bowel sounds are present. Musculoskeletal: Bilateral rib tenderness. No flail segment or paradoxical motion of the chest. Right hip tenderness. Normal distal pulses in the lower extremities. Integumentary: No pale and diaphoretic. Neurological: GCS of 14. Eyes open to voice. Moves all extremities. Sensation intact throughout all extremities. Cranial nerves are intact. Psychiatric: Normal affect. Medical Decision & Procedures ER Provider Diagnostic Interpretation: X-ray results as stated below per interpretation by me and the radiologist. Radiology results as stated below per my review and the radiologist's interpretation: SINGLE VIEW CHEST CLINICAL HISTORY: Trauma. Fall from ladder. FINDINGS: An AP, portable, supine chest radiograph is compared to study dated 07/13/16. The examination is degraded by portable technique and patient rotation. The cardiomediastinal patient is status post midline sternotomy. The heart is mildly enlarged and there is atherosclerotic calcification of the thoracic aorta. The pulmonary vasculature is noncongested. There is no large pleural effusion. Hazy airspace opacities are questioned in the left midlung. A tiny pneumothorax is questioned at the left lung base. No right-sided pneumothorax is clearly seen. The skeletal structures are osteopenic. There are numerous acute bilateral rib fractures. A right scapular fracture is suspected. Subcutaneous emphysema is noted in the left lower neck and along the left chest wall. IMPRESSION: 1. There are numerous acute bilateral rib fractures. A right scapular fracture is also questioned. 2. Question a trace pneumothorax at the left lung base. 3. There are hazy airspace opacities in the left midlung. This could represent an infectious/inflammatory pneumonitis/aspiration or possibly pulmonary contusion. Clinical correlation will be required. 4. Subcutaneous gas is present in the left lower neck and along the left chest wall. Electronically signed by: Brandon Pickard M.D. 02/07/2017 12:01 PM Dictated Date/Time: 02/07/2017 11:[address] SCAN OF THE CHEST, ABDOMEN, AND PELVIS WITH IV CONTRAST CLINICAL HISTORY: Trauma. Fall from ladder. COMPARISON STUDY: Chest x-ray dated 02/07/2017. TECHNIQUE: Following the IV administration of 93 of Optiray 320, CT scan of the chest, abdomen, and pelvis was performed from the thoracic inlet to the proximal femora. Images are reviewed in the axial, sagittal, and coronal planes. IV contrast was administered without complication. Automated dose control exposure was utilized. A dose lowering technique was utilized adhering to the principles of ALARA. The examination is degraded by streak artifact from the patient's arms which could not be elevated above the chest or abdomen. The examination is also significantly motion compromised. FINDINGS: CHEST: Thyroid: Atrophic versus surgically absent. Thoracic aorta: There is mild atherosclerotic calcification of the thoracic aorta, which is normal in caliber and demonstrates standard 3-vessel arch anatomy. No dissection is seen. No periaortic hematoma is identified. Pulmonary vasculature: The pulmonary trunk is normal in caliber. There are no filling defects identified in the central pulmonary vessels to indicate pulmonary was. Note that this examination was not protocoled for evaluation of the pulmonary arteries. Heart: The patient is status post midline sternotomy. The heart is top normal in size and without pericardial effusion. The coronary arteries are densely calcified. Lungs and pleural spaces: There is a small left apical and basilar pneumothorax. No right pneumothorax is seen. There is patchy airspace consolidation seen throughout the left lower lobe with evidence of at least 3 small pulmonary lacerations. These contain air-fluid levels likely presenting blood. The largest laceration measures up to 2 cm. Trace pneumothorax is seen at the left lung base. Dependent atelectasis is noted at the right lung base. Layering secretions are present within the right mainstem bronchus. Mediastinum: There is no mediastinal hematoma or lymphadenopathy. Josefina: Clear. Axillae: There is no axillary lymphadenopathy. Bony thorax: The skeletal structures are osteopenic. There is a comminuted fracture of the right scapula with numerous distracted fragments. Fracture extends from the base of the coracoid process, through the blade of the scapula, and also extends through the glenoid. The right humeral head appears intact. There are acute nondistracted right posterior lateral 3rd through 9th rib fractures. There are also age indeterminant anterior right 5th through 7th rib fractures. There are acute left posterior 1st through 12th rib fractures. Several of these are distracted. There are also anterolateral left 2nd through 7th rib fractures. There is a comminuted fracture involving the body of T3. There is only mild loss of height. Fracture does not extend through the posterior elements. No retropulsion of fragments is seen. There is associated paravertebral edema at this level. There are T7, T8, and T9 spinous process fractures. The remainder of the thoracic spine appears intact. Soft tissues: Subcutaneous emphysema is seen in the lower neck bilaterally, left greater than right. Gas dissects into the partially imaged pharyngeal soft tissues and along the left chest wall. ABDOMEN AND PELVIS: Liver: The contrast-enhanced liver is normal in size, contour, and attenuation. There is no intrahepatic or ductal dilatation. The hepatic veins and portal veins are patent. Gallbladder: Unremarkable. Spleen: Normal in size and attenuation. Small calcified splenic granulomas are observed. Pancreas: Evaluation of pancreas is degraded by motion artifact. There is a large calcification seen in the region of the pancreatic neck. The distal pancreas is markedly atrophic and the distal pancreatic duct is dilated. Probable calcifications are noted in the distal pancreas. The pancreatic head is normal as imaged. Adrenal glands: Unremarkable. Kidneys: The contrast enhanced kidneys images are cortical atrophy and are without hydronephrosis. The kidneys enhance symmetrically. There is a circumaortic left renal vein. Abdominal vasculature: The abdominal aorta is normal in course and caliber. Stomach and bowel: There is a small hiatal hernia. The stomach and duodenum otherwise normal in configuration. A tiny duodenal lipoma is incidentally noted. The small bowel and colon are normal in course and caliber. The appendix is well-visualized and normal. Peritoneum: There is no intraperitoneal free air or abdominal ascites. Lymphadenopathy: None. Pelvic viscera: There is median lobe hypertrophy of the prostate gland. The bladder is normal as visualized. Skeletal structures: The skeletal structures are osteopenic. There is an acute left transverse process of L1. There are acute bilateral transverse process fractures seen at L2, L3, and L4. There is an impacted and comminuted subcapital fracture of the right femur. The left proximal femur and the bony pelvis appear intact. Mild lumbosacral spondylosis is observed. There are bilateral pars defects at L5 without evidence of anterolisthesis at L5-S1. No lytic or blastic lesions are seen. A bone island is incidentally noted in the left ilium. Soft tissues: There is induration within the simultaneous fat of the ventral pelvic wall. IMPRESSION: 1. Streak and motion degraded examination. 2. There is a comminuted fracture of the right scapula with distracted fragments and extension through the glenoid. 3. There are numerous bilateral rib fractures as detailed above. Several of these ribs are fractured at 2 sites which places the patient at risk for a flail chest. 4. There is a small left-sided hemopneumothorax. No right pneumothorax is seen. 5. There is consolidative change throughout the left lower lobe consistent with pulmonary contusion. Small pulmonary lacerations are identified. 6. There is a comminuted fracture involving the body of T3. No retropulsed fragments are identified and there is only minimal loss of height. Fracture does not extend through the posterior elements. Thoracic spinous process fractures are also identified. 7. There are numerous transverse process fractures identified in lumbar spine as detailed above. 8. There is an impacted and comminuted subcapital fracture of the right femur. 9. There is no evidence of solid organ injury in the abdomen or pelvis. 10. Although the pancreas is not well assessed due to streak and motion, there is a large calcification in the region of the pancreatic neck, possibly located within the main duct. The distal pancreas is markedly atrophic with dilatation of the main pancreatic duct. The pancreatic head is normal as visualized. This may be related to a chronic obstructing stone within the pancreatic duct. Underlying mass lesion would be impossible to exclude. Nonemergent follow-up with endoscopy is recommended when the patient is clinically able. 11. Soft tissue contusion is noted in the ventral pelvic wall. 12. Subcutaneous gas is noted in the lower neck, left greater than right. This dissects in the pharyngeal soft tissues as well as along the left chest wall. 13. Additional findings as above. Findings were discussed with Dr. Fried in the emergency department at the time of interpretation. Electronically signed by: Brandon Pickard M.D. 02/07/2017 12:44 PM Dictated Date/Time: 02/07/2017 12:[address] SCAN OF THE BRAIN WITHOUT IV CONTRAST CLINICAL HISTORY: Trauma. Fall from ladder. COMPARISON STUDY: No priors. TECHNIQUE: Unenhanced axial CT scan of the brain is performed from the vertex to the skull base. 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 There are age-related involutional changes noting mild subcortical and periventricular microangiopathic change. There is no hemorrhage, mass effect, or evidence of acute territorial ischemia by CT criteria. Guy-white matter is preserved. No extra-axial fluid collection is seen. Ventricles, sulci, cisterns: Prominent secondary to involutional change. Intracranial vasculature: There is atherosclerotic calcification of the cavernous carotid arteries. Calvarium: The skeletal structures are osteopenic. No depressed calvarial fracture is seen. Sinuses and mastoids: The visualized paranasal sinuses are clear. The mastoid air cells are well pneumatized. Orbits: The bony orbits are grossly intact. IMPRESSION: 1. There is no hemorrhage, mass effect, or evidence of acute territorial ischemia by CT criteria. 2. Age-related changes and normal left frontal infarct as above. Electronically signed by: Brandon Pickard M.D. 02/07/2017 12:08 PM Dictated Date/Time: 02/07/2017 12:[address] SCAN OF THE CERVICAL SPINE CLINICAL HISTORY: Trauma. Fall from ladder. COMPARISON STUDY: No priors. TECHNIQUE: CT scan of the cervical spine is performed from the skull base to the upper thoracic spine. Images are reviewed in the axial, sagittal, and coronal planes. IV contrast was not administered for this examination. A dose lowering technique was utilized adhering to the principles of ALARA. FINDINGS: Skeletal structures: The skeletal structures are heterogeneously osteopenic. There is no evidence of fracture or subluxation involving the cervical spine. Vertebral body height and alignment are maintained. The odontoid process and lateral masses are intact. The atlantoaxial articulation is preserved noting productive degenerative change. Anterior osteophytes are seen throughout. The spinous processes appear intact. There is moderate multilevel cervical spondylosis. Uncovertebral and facet arthropathy contribute sterile foraminal narrowing at most levels. There is a fracture of the left posterior first rib. Intervertebral discs: Moderate disc space narrowing is seen at C6-C7 and C7-T1. Mild disc space narrowing seen at the remaining cervical levels. Central canal: Posterior disc osteophyte complexes at C6-C7, C7-T1, and T1-T2 likely contribute to acquired compromise of the central canal. Soft tissues: The prevertebral and paraspinous soft tissues are within normal limits. Subcutaneous emphysema is noted in the left lower neck. This dissects into the pharyngeal tissues. There is atherosclerotic calcification of the carotid bulbs. The thyroid gland is atrophic. Calvarium: The visualized calvarium at the skull base appears intact. Brain parenchyma: Partially visualized brain parenchyma the skull base is within normal limits there are age-related involutional change. Sinuses and mastoids: The visualized paranasal sinuses are clear. The mastoid air cells are well pneumatized. Lung apices: Trace left apical pneumothorax is identified. The right apex is clear as imaged. IMPRESSION: 1. There is no evidence of fracture or subluxation involving the cervical spine. 2. A left posterior first rib fracture is partially imaged. 3. Trace left apical pneumothorax is identified and subcutaneous emphysema is seen in the left lower neck. 4. Osteopenia and spondylotic change as above. Electronically signed by: Brandon Pickard M.D. 02/07/2017 12:13 PM Dictated Date/Time: 02/07/2017 12:08 PM THORACIC SPINE WITHOUT CT DOSE: HISTORY: Trauma EVALUATE FOR TRAUMA/INJURY TECHNIQUE: Multiaxial CT images of the thoracic spine were performed and reformatted in the sagittal and coronal plane without the use of contrast. A dose lowering technique was utilized adhering to the principles of ALARA. COMPARISON: None. FINDINGS: Vertebral body stature is remarkable for a nondisplaced fracture inferior endplate of T3. There Is moderate degree of surrounding soft tissue edematous change. There is moderate subcutaneous emphysema within the paraspinal musculature. There is a fracture of the spinous process of T8. There is a fracture of the spinous process of T9, and possibly T7.. There is a fracture of the left 11th rib, left ninth rib, left eighth rib, seventh rib, sixth rib, as well as the left first rib. Posterior pulmonary contusions appear to be present. There are multiple left-sided rib fractures. Subcutaneous air is identified in the left paraspinal musculature region. There is a nondisplaced fracture left first rib. IMPRESSION: 1. Fracture inferior anterior endplate T3. 2. Fracture spinous process of T7-T8 and T9. 3. Fractures of the left first rib, as well as the posterior sixth through 11th ribs. 4. Subcutaneous air within the posterior paraspinal musculature. 5. Posterior pulmonary contusions The above report was generated using voice recognition software. It may contain grammatical, syntax or spelling errors. Electronically signed by: Devante Flores M.D. 02/07/2017 12:26 PM Dictated Date/Time: 02/07/2017 12:17 PM LUMBAR SPINE WITHOUT CT DOSE: 3005.52 mGy.cm HISTORY: Trauma. Pain. eval for fx TECHNIQUE: Multiaxial CT images of the lumbar spine were performed and reformatted in the sagittal and coronal plane without the use of contrast. A dose lowering technique was utilized adhering to the principles of ALARA. COMPARISON: None. FINDINGS: Vertebral body stature is unremarkable. Degenerative disc changes noted at L5-S1 with a vacuum disc present. There is no compression deformity. There is no subluxation. There are fractures of the left transverse processes of L1-L4. There are fractures of the right transverse processes of L2-L4. IMPRESSION: 1. Fractures of left transverse processes of L1-L4. 2. Fractures of the right transverse processes of L2-L4 3. No evidence for an acute compression deformity. The above report was generated using voice recognition software. It may contain grammatical, syntax or spelling errors. Electronically signed by: Devante Flores M.D. 02/07/2017 12:32 PM Dictated Date/Time: 02/07/2017 12:27 PM Laboratory Results 02/07/17 11:40 Red Blood Count 5.27, Mean Corpuscular Volume 87.3, Mean Corpuscular Hemoglobin 28.8, Mean Corpuscular Hemoglobin Concent 33.0, Mean Platelet Volume 10.9, Neutrophils (%) (Auto) 72.4, Lymphocytes (%) (Auto) 18.2, Monocytes (%) (Auto) 6.7, Eosinophils (%) (Auto) 1.1, Basophils (%) (Auto) 0.1, Neutrophils # (Auto) 11.41, Lymphocytes # (Auto) 2.87, Monocytes # (Auto) 1.05, Eosinophils # (Auto) 0.17, Basophils # (Auto) 0.02 02/07/17 11:40 Test 02/07/17 11:39 02/07/17 11:40 02/07/17 11:50 02/07/17 13:05 Bedside Glucose 105 mg/dl (70-99) White Blood Count 15.75 K/uL (4.8-10.8) Red Blood Count 5.27 M/uL (4.7-6.1) Hemoglobin 15.2 g/dL (14.0-18.0) Hematocrit 46.0 % (42-52) Mean Corpuscular Volume 87.3 fL (80-100) Mean Corpuscular Hemoglobin 28.8 pg (25-34) Mean Corpuscular Hemoglobin Concent 33.0 g/dl (32-36) Platelet Count 193 K/uL (130-400) Mean Platelet Volume 10.9 fL (7.4-10.4) Neutrophils (%) (Auto) 72.4 % Lymphocytes (%) (Auto) 18.2 % Monocytes (%) (Auto) 6.7 % Eosinophils (%) (Auto) 1.1 % Basophils (%) (Auto) 0.1 % Neutrophils # (Auto) 11.41 K/uL (1.4-6.5) Lymphocytes # (Auto) 2.87 K/uL (1.2-3.4) Monocytes # (Auto) 1.05 K/uL (0.11-0.59) Eosinophils # (Auto) 0.17 K/uL (0-0.5) Basophils # (Auto) 0.02 K/uL (0-0.2) RDW Standard Deviation 42.0 fL (36.4-46.3) RDW Coefficient of Variation 13.2 % (11.5-14.5) Immature Granulocyte % (Auto) 1.5 % Immature Granulocyte # (Auto) 0.23 K/uL (0.00-0.02) Estimated GFR () 49.9 Estimated GFR (Non- 43.0 BUN/Creatinine Ratio 12.4 (10-20) Calcium Level 9.4 mg/dl (8.5-10.1) Total Bilirubin 0.5 mg/dl (0.2-1) Direct Bilirubin 0.1 mg/dl (0-0.2) Aspartate Amino Transf (AST/SGOT) 114 U/L (15-37) Alanine Aminotransferase (ALT/SGPT) 111 U/L (12-78) Alkaline Phosphatase 71 U/L (45-117) Total Protein 7.8 gm/dl (6.4-8.2) Albumin 4.0 gm/dl (3.4-5.0) Lipase 349 U/L (73-393) Bedside Hemoglobin 15.6 g/dl (14.0-18.0) Bedside Hematocrit 46 % (42-52) Bedside Sodium 142 mEq/L (135-144) Bedside Potassium 3.3 mEq/L (3.3-5.0) Bedside Chloride 106 mEq/L (101-112) Bedside Total CO2 23 mEq/l (24-31) Anion Gap 18.0 mmol/L (16-25) Bedside Blood Urea Nitrogen 20 mg/dl (7-18) Bedside Creatinine 1.5 mg/dl (0.6-1.3) Bedside Glucose (other) 115 mg/dl (70-99) Bedside Ionized Calcium (Betzaida) 1.14 mmol/l (1.12-1.32) Urine Color YELLOW Urine Appearance CLEAR (CLEAR) Urine pH 6.0 (4.5-7.5) Urine Specific [place] 1.031 (1.000-1.030) Urine Protein 1+ (NEG) Urine Glucose (UA) NEG (NEG) Urine Ketones NEG (NEG) Urine Occult Blood 2+ (NEG) Urine Nitrite NEG (NEG) Urine Bilirubin NEG (NEG) Urine Urobilinogen NEG (NEG) Urine Leukocyte Esterase NEG (NEG) Urine WBC (Auto) 1-5 /hpf (0-5) Urine RBC (Auto) 10-30 /hpf (0-4) Urine Hyaline Casts (Auto) 1-5 /lpf (0-5) Urine Epithelial Cells (Auto) >30 /lpf (0-5) Urine Bacteria (Auto) NEG (NEG) Urine Renal Epithelial Cells 0-5 /lpf (0-5) Urine Pathogenic Casts 0-3 GRANULAR CASTS /lpf (0) Laboratory results as reviewed by me. 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 ED Course 1139: The patient was evaluated in room A9B. A complete history and physical exam was performed. 1145: FAST exam shows no free fluid in the abdomen or around the pericardium although the pericardial view was suboptimal. 1147: I discussed the patient's case [place] Sal[place], [facility] [place] [facility]. He recommends calling Dr. Bennett of CT surgery if there is a pneumothorax. 1156: Fentanyl Citrate 25 mcg IV. 1218: I reevaluated the patient. He has persistent sharp chest pain. I discussed the test results and possible need for transfer. We are waiting on the CTs to be read. 1224: I spoke with radiology. They called to inform me of the CT results. 1228: I reevaluated the patient. I discussed his injuries and the need for transfer to a trauma center with him. He would prefer to go to [facility] for his trauma care. 1232: I reassessed the patient. I discussed test results with his who is now at bedside. 1236: Zofran Inj 4 mg IV, Fentanyl Citrate 50 mcg IV. 1240: I discussed the patients case with Dr. Vitale, [facility] trauma surgery. She has accepted the patient for transfer. 1244: I reevaluated the patient. He is stable. I updated him and his on the results and the plan. They verbalized agreement of the plan. He will be transferred to [facility] for further care. 1304: I reevaluated the patient. He is maintaining his O2 sat. He is still hypertensive. The ambulance is on its way to transport him. Medical Decision This is a 71-year-old male who presents with injuries after a fall. Differential diagnosis includes rib fracture, pneumothorax, intracranial hemorrhage, liver laceration, pulmonary contusion, hip fracture, vertebral fracture. I did perform a limited focused review of portions of the patient's old chart on the electronic medical record. The patient has had no recent pertinent visits to this hospital. I was called emergently into the room to evaluate the patient by the nurse. I did evaluate the patient as noted above. He is pale and diaphoretic. His GCS is 14. He is coherent and answers questions but he is slow to respond. IV access was established. The patient was placed on a continuous cardiac cath tech. He is hypoxemic. He was placed on supplemental oxygen. I did order and personally review the patient's 12-lead EKG and stat chest x-ray as described above. Chest x-ray demonstrates bilateral rib fractures without pneumothorax. I did perform a bedside ultrasound FAST exam which showed no evidence of free fluid around the heart or in the abdomen.. I did order and review the patient's blood work as noted in the electronic medical record. I did order a CT of the head, spine, chest and abdomen pelvis. I did review the images myself as well as the radiology report as described above. He has multiple injuries as described above. The patient was treated with IV fentanyl and Zofran for pain control. I did reassess the patient multiple times. I did discuss the test results with the patient and his . The patient does require transfer to a trauma center. I did discuss options with him and he preferred [facility]. I did discuss case with the trauma surgeon at [facility] who accepted the patient for transfer. He was transferred via ALS ambulance. Head Trauma GCS Score: 14 Medication Reconcilliation Current Medication List: was personally reviewed by me Blood Pressure Screening Patient's blood pressure: Elevated blood pressure Consults Time Called: 1143 Consulting Physician: [place] Salazar[place] [facility] Returned Call: [phone] I discussed the patient's case with him. He recommends calling Dr. Bennett of CT surgery if there is a pneumothorax. Additional Consults: Time Called: 1230 Consulted Physician: Dr. Vitale, [facility] trauma surgery Returned Call: 1240 Additional Comments: I discussed the patient's case with her. She has accepted the patient for transfer. Impression Primary Impression: Hemopneumothorax on left Additional Impressions: Multiple fractures of ribs of both sides Right scapula fracture Left pulmonary contusion Pulmonary laceration Thoracic spine fracture Fracture of lumbar spine Subcapital fracture of right hip Fall Hypoxia Critical Care I have personally spent 45 minutes of critical care time in the direct management of this patient. This includes bedside care, interpretation of diagnostic studies, and testing, discussion with consultants, patient, and family members, and other required patient management activities. This 45 minutes is in excess of all separately billable procedures. Scribe Attestation The scribe's documentation has been prepared under my direct and personally reviewed by me in its entirety. I confirm that the note above accurately reflects all work, treatment, procedures, and medical decision making performed by me. Departure Information Dispostion Transfer Acute Care Facility Referrals Lilian Ritchie M.D. (PCP) Patient Instructions My [facility] Problem Qualifiers Additional Impressions: Multiple fractures of ribs of both sides Encounter type: initial encounter Fracture type: closed Qualified Codes: S22.43XA - Multiple fractures of ribs, bilateral, initial encounter for closed fracture Right scapula fracture Encounter type: initial encounter Scapula location: unspecified part of scapula Fracture type: closed Qualified Codes: S42.101A - Fracture of unspecified part of scapula, right shoulder, initial encounter for closed fracture Left pulmonary contusion Encounter type: initial encounter Qualified Codes: S27.321A - Contusion of lung, unilateral, initial encounter Pulmonary laceration Encounter type: initial encounter Qualified Codes: S27.339A - Laceration of lung, unspecified, initial encounter Thoracic spine fracture Encounter type: initial encounter Thoracic vertebra fracture level: unspecified thoracic vertebra Fracture type: closed Fracture morphology: unspecified fracture morphology Qualified Codes: S22.009A - Unspecified fracture of unspecified thoracic vertebra, initial encounter for closed fracture Fracture of lumbar spine Encounter type: initial encounter Lumbar vertebra fracture level: unspecified lumbar vertebra Fracture type: closed Fracture morphology: unspecified fracture morphology Qualified Codes: S32.009A - Unspecified fracture of unspecified lumbar vertebra, initial encounter for closed fracture Subcapital fracture of right hip Encounter type: initial encounter Fracture type: closed Qualified Codes: S72.011A - Unspecified intracapsular fracture of right femur, initial encounter for closed fracture Fall Encounter type: initial encounter Qualified Codes: W19.XXXA - Unspecified fall, initial encounter
[2017-02-07 13:34] LABS: URINE APPEARANCE CLEAR (CLEAR); URINE BILIRUBIN NEG (NEG); URINE COLOR YELLOW; URINE EPITHELIAL CELL AUTO >30 /lpf (0-5); URINE NITRITE NEG (NEG); URINE SPECIFIC GRAVITY 1.031 (1.000-1.030); UROBILINOGEN NEG (NEG)
[2017-02-07 13:41] LABS: MANUAL MICROSCOPIC REQUIRED? NO; REVIEW REQ? YES
[2017-02-07 14:10] LABS: URINE PATH CASTS 0-3 GRANULAR CASTS /lpf (0)
== END 2017-02-07 13:25 | disposition short-term general hospital (02) ==
LOC: EDBD 11:32 → C.EDA 11:34 → C.ED 13:25
DX: S27.2XXA Traumatic hemopneumothorax, initial encounter (principal); S22.43XA Multiple fractures of ribs, bilateral, initial encounter for closed fracture; S42.101A Fracture of unspecified part of scapula, right shoulder, initial encounter for closed fracture; S32.028A Other fracture of second lumbar vertebra, initial encounter for closed fracture; S32.039A Unspecified fracture of third lumbar vertebra, initial encounter for closed fracture; S32.048A Other fracture of fourth lumbar vertebra, initial encounter for closed fracture; S22.069A Unspecified fracture of T7-T8 vertebra, initial encounter for closed fracture; S22.078A Other fracture of T9-T10 vertebra, initial encounter for closed fracture; S27.331A Laceration of lung, unilateral, initial encounter; S72.011A Unspecified intracapsular fracture of right femur, initial encounter for closed fracture; W11.XXXA Fall on and from ladder, initial encounter; E11.9 Type 2 diabetes mellitus without complications; I51.9 Heart disease, unspecified; F17.210 Nicotine dependence, cigarettes, uncomplicated; Z80.52 Family history of malignant neoplasm of bladder; Z82.49 Family history of ischemic heart disease and other diseases of the circulatory system; Z79.82 Long term (current) use of aspirin; Z79.4 Long term (current) use of insulin; Z79.899 Other long term (current) drug therapy

== ENCOUNTER 2019-07-02 06:58 | Observation (INO) ==
[2019-07-02] MEDS ORDERED: HEPARIN (PORCINE) 1000 UNIT/ML 10 ML (CATH LAB USE ONLY) ONE ×2 (07:33→09:28)
[2019-07-02] MEDS ORDERED: NiCARDipine HCL INJ 2.5 MG/ML 10 ML AMP ONE (07:34)
[2019-07-02] MEDS ORDERED: fentaNYL citrate 100 MCG/2 ML VIAL ONE ×2 (07:34→09:26)
[2019-07-02] MEDS ORDERED: NITROGLYCERIN/D5W 100MCG/ML 20ML SYR ONE (07:35)
[2019-07-02] MEDS ORDERED: MIDAZOLAM HCL 1 MG/ML 2ML VIAL ONE ×2 (07:35→09:27)
--- NOTE | 2019-07-02 07:50 | History & Physical Bridge Note ---
Date of Service July 02, 2019 History & Physical Bridge Note I have examined the patient, reviewed the History & Physical and in the interval since the performance of the History & Physical I have noted the following changes of clinical significance: no changes noted
--- NOTE | 2019-07-02 07:50 | Pre Anesthesia Assessment ---
Date of Service July 02, 2019 Pre Sedation Assessment Vital Signs Temp Pulse Resp BP Pulse Ox 07/02/19 07:08 97.5 F L 42 L 17 164/74 H 97 Cardiovascular RRR, no murmur, no edema Respiratory normal respiratory effort, lungs clear to auscultation Pre-Sedation Airway Assessment Smoking Status: Former smoker Hx Sleep Apnea: No Hx Difficult Intubation: No Short, Thick Neck: No Thyromental Distance: > or= 3.5 Finger Breadths Oral Cavity: + WNL Mallampati Class: III ASA: ASA3 NPO Status Date of Last Intake of Fluids: 07/01/19 Time of Last Intake of Fluids: 19:00 Date of Last Intake of Solid Food: 07/01/19 Time of Last Intake of Solid Foods: 19:00 Procedure Planning Contraindications for Sedation: none Current Medications Reviewed: Yes Notes The planned sedation has been discussed with the patient. Informed Consent was obtained. I have identified the patient, determined the appropriateness of sedation and have assessed the patient immediately prior to the procedure. All medicine(s) and interventions are by my order.
[2019-07-02] MEDS ORDERED: CLOPIDOGREL BISULFATE 300 MG TAB ONE (10:28)
[2019-07-02] MEDS ORDERED: ONDANSETRON INJ 2 MG/ML 2 ML VIAL IV PRN (10:35)
[2019-07-02] MEDS ORDERED: ACETAMINOPHEN 325 MG TAB PO PRN (10:35)
[2019-07-02] MEDS ORDERED: NITROGLYCERIN SL 0.4 MG/TAB TAB SL PRN (10:35)
[2019-07-02] MEDS ORDERED: DOCUSATE SODIUM 100 MG CAP PO PRN (10:40)
[2019-07-02] MEDS ORDERED: CARBOHYDRATES FOR HYPOGLYCEMIA PO PRN (10:42)
[2019-07-02] MEDS ORDERED: GLUCOSE 40% GEL 15 GM TUBE PO PRN (10:42)
[2019-07-02] MEDS ORDERED: GLUCAGON FOR INJ 1 MG VIAL SQ PRN (10:42)
[2019-07-02] MEDS ORDERED: GLUCOSE 10 TABS/TUBE PO PRN (10:42)
[2019-07-02] MEDS ORDERED: DEXTROSE 50% 50 ML SYRINGE IV PRN (10:42)
[2019-07-02] MEDS ORDERED: SODIUM CHLORIDE 0.9% 1000ML 1,000 ML IV SCH (10:45)
[2019-07-02] MEDS ORDERED: PHARMACY GLYCEMIC MGMT CONSULT SCH (11:09)
--- NOTE | 2019-07-02 12:09 | Pharmacy Report ---
Glycemic Control Consultation - Date of Service July 02, 2019 - Scope Scope: Glycemic Pharmacist consulted by Dr Modesto Matias on 07/02/19 for glycemic control and to write orders per [facility] inpatient glycemic control protocol - Objective Weight: 83.6 kg Accuchecks BSG (last 24hrs): 07/02/19 10:59 POC Glucose 133 H - Recent Pertinent Medications Outpatient Anti-diabetic Regimen: * Lantus 48 units SQ BID (Patient took 24 units this morning) * Humalog - about 8 units with breakfast, 15 units with lunch, 20 units with dinner * A1c = 10.2 % 07/13/16, updated A1c ordered with AM Labs Risk Factors for Insulin Resistance: * Recent Surgery: s/p cardiac cath * Diet: Type 2 DM - Assessment & Plan Assessment & Plan: ASSESSMENT: * 73 year old male s/p cardiac cath, type 2 diabetic, uncontrolled, on Lantus and Humalog at home. * Post op blood sugar at goal 133mg/dl, spoke with patient, see insulin doses above, he recently increased his Lantus dose from 46 units to 48 units BID. * Will continue home dose of Lantus and use CF/CR for meals, patient states he is hungry and will eat lunch. * A1c with AM labs. PLAN FOR INPATIENT GLYCEMIC CONTROL: * Basal insulin * Lantus 46 units SQ BID * Bolus insulin * NovoLog per scale ACHS or Q6hrs while NPO * Goal Range: Low 110 mg/dL - High 140 mg/dL * Correction Factor: 20 mg/dL/unit * Nutritional / Prandial insulin per carb ratio of 1 unit per 7 grams CHO consumed * Please note that the plan above was derived based on current level of insulin resistance and hospital stress. These recommendations are appropriate for inpatient admission only. Plan of care upon discharge will need to be reassessed to avoid potential outpatient hypo/hyperglycemia. Thank you.
[2019-07-02] MEDS: INSULIN ASPART 100 UNITS/ML 3 ML PEN SC SCH ×3 (13:40→21:35)
--- NOTE | 2019-07-02 14:40 | Electrocardiogram Report ---
Test Reason : Blood Pressure : / mmHG Vent. Rate : 055 BPM Atrial Rate : 055 BPM P-R Int : 202 ms QRS Dur : 130 ms QT Int : 464 ms P-R-T Axes : 087 -70 036 degrees QTc Int : 443 ms Poor data quality, interpretation may be adversely affected Sinus bradycardia Left axis deviation Right bundle branch block Inferior infarct , age undetermined Abnormal ECG When compared with ECG of 07-FEB-2017 11:39, Significant changes have occurred Confirmed by Joby Horner ([id number]) on 07/02/2019 2:40:23 PM Referred By: Joshua Matias Confirmed By:Joby Horner
[2019-07-02] MEDS: METOPROLOL TARTRATE 25 MG TAB PO SCH (21:34)
[2019-07-02] MEDS: INSULIN GLARGINE SOLOSTAR 100 UNITS/ML 3 ML PEN SQ SCH (21:36)
--- NOTE | 2019-07-02 21:53 | Cardiac Catheterization ---
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 Clinical evaluation leading to the procedure CAD Presenation: Positive Stress Test Anginal Classification: CCS III Heart Failure: No Cardiogenic Shock within 24 Hours: No Cardiac Arrest within 24 Hours: No Imaging Studies Past 6 Months: Yes Stress Studies Past 6 Months: Yes Stress Echocardiogram: Yes - Positive and Risk/Extent of Ischemia (High) Diagnostic Physicians Name: Modesto Matias MD Status: Elective Closure Device Percutaneous Entry Location: Femoral Closure Device: Angio-Seal Recommendations: PCI without planned CABG PCI Indication: + Stress Test and Unstable Angina Lesion Segment Name: proximal circumflex Culprit Artery: Yes Stenosis Prior to Rx (%): 95 Chronic Total Occlusion: No IVUS: No FFR: No Pre-Procedure BILL Flow: 2 Previously Treated Lesion: No Lesion Complexity: High/C Lesion Length (mm): 30 Thrombus Present: No Bifurcation Lesion: Yes Guidewire Across Lesion: Stenosis Post-Procedure (%): 0 Post-Procedure BILL Flow: 3 Devices(s) Deployed: Yes Yes Intraprocedure Events Significant Disection: No Perforation: No Cardiac Cath Procedure Full Procedure Date July 02, 2019 Pre-Procedure Diagnosis Pre-Procedure Diagnosis: Positive Stress Test AUC Score AUC Score: 7 Post-Procedure Diagnosis Post-Procedure Diagnosis: Severe CAD and Successful PCI Procedure(s) Performed Procedure(s) Performed: Coronary Angiography, Drug Eluting Stent, Bypass Graft Angiography and Femoral Artery Angiography [employer] Modesto Matias MD Component Inspector(s) Peter Jordan Estimated Blood Loss Estimated Blood Loss: 20 Medication(s) Medication(s): Clopidogrel, Fentanyl, Heparin, Lidocaine 1%, Nicardipine, Nitroglycerin and Versed Summary of Findings Indication: Accelerating angina, abnormal stress test Access: 6 Fr right common femoral artery Catheters: JL4, JR4, JESUS. 4 Fr JR4 Findings: LM -calcified, 30% distal stenosis LAD -100% chronic ostial occlusion Circumflex -heavily calcified, 95% ostial/proximal stenosis, mid segment luminal irregularity extending into OM 3. Distal small with severe disease. RCA -100% proximal occlusion HOLLIS to LAD with Y to diagonalwidely patent, LAD after anastomosis with mild mid segment disease, diffuse disease and small vessel as wraps around apex. Provides faint left to left collaterals to OM Gastroepiploic to PDAwidely patent. Distal PDA with mild diffuse disease. Retrofilled stent to right PLB with 40 to 50% ostial PDA disease. -- PCI -- Antithrombotic therapy: Heparin, clopidogrel Procedure: Left main cannulated with EBU 3.75 guide Member Of Technical Staff 50 wire passed across lesion into distal OM 3 Distal left main, ostial/proximal circumflex lesion predilated with 1.5, 2.5 compliant balloons Calcified disease predilated with 3.0 NC balloon with aid of a telescope Proximal to mid circumflex stented with 3.0 x 18 mm [place] drug-eluting stent Stent post-dilated with 3.5 noncompliant balloon Left main to proximal circumflex stented with 3.0 x 18 mm Navarro overlapping with proximal aspect of initial stent Stent postdilated with 3.75 NC balloon IC vasodilators administered for spasm Post procedure BILL 3 flow, stent well expanded with minimal residual stenosis and no apparent cardiac complications. Arterial Closure: Angio-Seal Summary: 1. Severe multi-vessel [place] coronary artery disease -30% distal left main, 95% ostial/proximal circumflex 100% ostial LAD 100% proximal RCA 2. Patent HOLLIS to LAD, first diagonal. Patent gastroepiploic to PDA. 3. Successful PCI of distal left main to mid circumflex with 2 overlapping drug- eluting stents (3.0 x 18, 3.0 x 18 [place]; postdilated with 3.75 NC). 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 Any exceptions are noted below. [facility] Card Cath Procedure Codes Cardiac Catheterization Procedure 1: Cardiovascular Cath Procedures: 30582 Coronaries and Grafts/IM (venous & atrial) & RHC Moderate Sedation Procedure 1: Sedation/Anesthesia: 33867 Mod Sedation by the same physician;Init15 Min Child Age 5 & Up Procedure 2: Sedation/Anesthesia: 14769 Mod Sedation by the same physician; Ea [id number] Minutes Stenting Procedure 1: Cardiovascular Stent Procedures: 43092 Perc transcatheter placement of intracoronary stent(s), with ang PG Care Time/CCT Total # of Minutes Spent Total Time Spent with Patient: Total time spent is greater than 50% in coordination of care (as documented) at patient's floor/unit and/or counseling patient:
[2019-07-03 03:52] VITALS: O2SAT 96
[2019-07-03 06:00] LABS: Basophils # (auto) 0.01 K/uL (0-0.2); Basophils % (auto) 0.1 %; Eosinophils # (auto) 0.16 K/uL (0-0.5); Eosinophils % (auto) 1.9 %; Hemoglobin 12.8 g/dL (14.0-18.0); Immature Granulocytes # (auto) 0.03 K/uL (0.00-0.02); Immature Granulocytes % (auto) 0.4 %; Lymphocytes # (auto) 1.81 K/uL (1.2-3.4); Lymphocytes % (auto) 21.2 %; Mean Corpuscular Hemoglobin 29.3 pg (25-34); Mean Corpuscular Hgb Conc 33.7 g/dL (32-36); Monocytes # (auto) 0.79 K/uL (0.11-0.59); Monocytes % (auto) 9.2 %; Neutrophils # (auto) 5.75 K/uL (1.4-6.5); Neutrophils % (auto) 67.2 %; Platelet Count 145 K/uL (130-400); RDW Coefficient of Variation 12.7 % (11.5-14.5); RDW Standard Deviation 40.8 fL (36.4-46.3); Red Blood Count 4.37 M/uL (4.7-6.1); White Blood Count 8.55 K/uL (4.8-10.8)
[2019-07-03] MEDS ORDERED: LEVOTHYROXINE SODIUM 137 MCG TABLET PO SCH (06:30)
[2019-07-03 06:48] LABS: Estimated Average Glucose 280 mg/dl; Hemoglobin A1C 11.4 % (4.5-5.6)
[2019-07-03 07:43] VITALS: TEMP 98.2
[2019-07-03] MEDS: INSULIN GLARGINE SOLOSTAR 100 UNITS/ML 3 ML PEN SQ SCH (08:52)
[2019-07-03] MEDS: CLOPIDOGREL BISULFATE 75 MG TAB PO SCH ×2 (08:53→09:16)
[2019-07-03] MEDS: INSULIN ASPART 100 UNITS/ML 3 ML PEN SC SCH (08:53)
[2019-07-03] MEDS: METOPROLOL TARTRATE 25 MG TAB PO SCH (08:54)
[2019-07-03] MEDS ORDERED: CHOLECALCIFEROL (VITAMIN D) 400 UNITS TABLET PO SCH (09:00)
[2019-07-03] MEDS ORDERED: ENALAPRIL MALEATE 10 MG TAB PO SCH (09:00)
[2019-07-03] MEDS ORDERED: TAMSULOSIN HCL 0.4 MG CAP PO SCH (09:00)
[2019-07-03] MEDS ORDERED: ASPIRIN 81 MG ECTAB PO SCH ×2 (09:00)
[2019-07-03] MEDS ORDERED: PRAVASTATIN SOD 40 MG TAB PO SCH (09:00)
[2019-07-03] MEDS ORDERED: ENOXAPARIN INJ 40 MG/0.4 ML SYR SQ SCH (10:45)
[2019-07-03 10:56] VITALS: BP 157/71; PULSE 63
--- NOTE | 2019-07-12 16:40 | Discharge Summary ---
Date of Service July 12, 2019 Admission HPI Per Admitting Provider Dr. Phillips 73-year-old male with a history of CAD s/p Remote DE s/p CABG x 3 Vessels (HOLLIS sequentially to LAD and D1, Gastroepiploic Artery to PDA at [facility] [place] 04/[place]), Hypertension, Hyperlipidemia, Insulin-Dependent Diabetes Mellitus (HgbA1c 10), Hypothyroidism, Peripheral Arterial Disease, Chronic Pain Disorder, and history of Tobacco Abuse referred for cardiac catheterization after abnormal stress echocardiogram. Discharge Data Consultations 07/02/19 10:40 Consult Cardiac Rehabilitation Routine Procedures Performed Operation Date: 07/02/19 08:00 Actual Procedures s Cineradiography w/Routine Exam - Joshua Matias MD p Cath, Left w/Cors Vent Grafts - Johsua Matias MD s Placement Art Occlusive Device - Joshua Matias MD s Drug Eluting Stent SGl Vessel - MD oksana Landeros Drug Eluting Stent Bypass GR - Joshua Matias MD Hospital Course (1) CAD (coronary artery disease): Patient underwent cardiac catheterization via right common femoral artery. He was found to have severe multivessel [place] coronary artery disease. LAD, RCA chronically occluded. 95% ostial proximal circumflex disease. His HOLLIS to LAD, first diagonal was patent and was found to have a patent gastroepiploic artery to PDA. Underwent successful PCI of distal left main to mid circumflex with 2 overlapping drug-eluting stents (3.0 x 18, 3.0 x 18 Navarro, postdilated with 3.75 NC). Post procedure admitted to telemetry service for observation. Had no recurrent chest pain. No access site complications. Post procedure labs stable. Remained stable electrically on telemetry. He was discharged home on hospital day 2 on DAPT with aspirin, clopidogrel and will follow-up with cardiology in 2 to 3 weeks. Discharge Instructions Home Medications acetaminophen 650 mg tablet,extended release 650 mg PO Q12H 06/26/19 [History Confirmed 07/02/19] aspirin 81 mg tablet,delayed release 81 mg PO DAILY 06/26/19 [History Confirmed 07/02/19] blood sugar diagnostic #10 ea 06/26/19 [History Confirmed 06/26/19] blood-glucose meter #1 ea 06/26/19 [History Confirmed 06/26/19] cholecalciferol (vitamin D3) 10 mcg (400 unit) capsule 400 units PO DAILY 06/26/19 [History Confirmed 07/02/19] docusate sodium 100 mg capsule 100 mg PO DAILY PRN 06/26/19 [History Confirmed 07/02/19] flash glucose sensor MS 06/26/19 [History Confirmed 06/26/19] insulin glargine 100 unit/mL (3 mL) subcutaneous pen 48 units SQ BID ml 06/26/19 [History Confirmed 07/02/19] insulin lispro 100 unit/mL subcutaneous cartridge See Rx Instructions .ROUTE USEASDIRECTD 06/26/19 [History Confirmed 07/02/19] lancets 28 gauge #25 ea 06/26/19 [History Confirmed 06/26/19] pravastatin 80 mg tablet 80 mg PO DAILY 06/26/19 [History Confirmed 07/02/19] tamsulosin 0.4 mg capsule 0.4 mg PO DAILY 06/26/19 [History Confirmed 07/02/19] levothyroxine 137 mcg PO DAILY 07/02/19 [History Confirmed 07/02/19] clopidogrel 75 mg PO QAM 30 Days #30 tab 07/03/19 [Rx] enalapril maleate 40 mg PO DAILY 30 Days #60 tab 07/03/19 [Rx Confirmed 07/02/19] levothyroxine 137 mcg PO DAILYBB #30 tab 07/03/19 [Rx] nitroglycerin [Nitrostat] 0.4 mg SUBLINGUAL PRN PRN 30 Days #30 tab 07/03/19 [Rx] Coding Level of Care Code 76202 OBS Care - Discharge Diagnoses CAD (coronary artery disease) I25.10
== END 2019-07-03 11:37 | disposition home or self-care (01) ==
LOC: CC 06:58 → 2S 06:58